=== PATIENT | female | born 1950 | race Caucasian/White ===

== ENCOUNTER 2020-05-07 09:04 | Day surgery (SDC) | payer MEDICARE, SELFPAY ==
[2020-05-04 13:19] VITALS: BMI 32.5
--- NOTE | 2020-05-04 14:14 | HO.ANESPROP2 ---
Documented by User: Caorl Gonzales 05/04/20 14:15 HPI - Anesthesia Eval Consult details Narrative: 69yo F for cyst PMFSH Past Medical History Medical History Glaucoma Nephrolithiasis Surgical History Surgical History History of lithotripsy Social History Social History Smoking Status: Never smoker Use of substances other than those prescribed or required for medical reasons: No Have you been hit, kicked, punched, or otherwise hurt by someone within the past year? If so, by whom?: No Advance Directives: No Advance Directives Information Provided: Yes Advance Directives on File: No (N/A) Meds Allergies Allergy/AdvReac Type Severity Reaction Status Date / Time No Known Allergies Allergy Verified 05/07/20 09:39 [No Known Allergies*] Home Medications Medication Instructions Recorded Confirmed Type latanoprost 1 drp OPHTHALMIC (EYE) BEDTIME 05/04/20 05/04/20 History pyridoxine (vitamin B6) 1 tab PO DAILY 05/04/20 05/07/20 History sulfamethoxazole-trimethoprim 1 tab PO BID 05/04/20 05/04/20 History sulfamethoxazole-trimethoprim 1 tab PO BID 05/04/20 05/04/20 History timolol 05/07/20 History Exam Exam Date and Time: May 04, 2020 1414 Height,Weight and Vital Signs: Height 4 ft 7 in Weight 63.503 kg Assessment and Plan Assessment Anesthesia Assessment: Chart Reviewed Documented by User: Xuan Brown 05/07/20 11:23 PMFSH Past Medical History Medical History Glaucoma Nephrolithiasis Surgical History Surgical History History of lithotripsy Social History Social History Smoking Status: Never smoker Use of substances other than those prescribed or required for medical reasons: No Have you been hit, kicked, punched, or otherwise hurt by someone within the past year? If so, by whom?: No Advance Directives: No Advance Directives Information Provided: Yes Advance Directives on File: No (N/A) Meds Allergies Allergy/AdvReac Type Severity Reaction Status Date / Time No Known Allergies Allergy Verified 05/07/20 09:39 [No Known Allergies*] Home Medications Medication Instructions Recorded Confirmed Type latanoprost 1 drp OPHTHALMIC (EYE) BEDTIME 05/04/20 05/04/20 History pyridoxine (vitamin B6) 1 tab PO DAILY 05/04/20 05/07/20 History sulfamethoxazole-trimethoprim 1 tab PO BID 05/04/20 05/04/20 History sulfamethoxazole-trimethoprim 1 tab PO BID 05/04/20 05/04/20 History timolol 05/07/20 History Exam Airway Mallampati Class: III TM Dist: >3cm Neck ROM: Full Heart: RRR Lungs: CTA BL Assessment and Plan Assessment Anesthesia Assessment: Anesthesia Plan Discussed, Consent Obtained and PAT Visit Final Anesthetic Review NPO: Yes Final Preanesthetic Review: No Changes in Pt Med Stat, Meds & Allergies Reviewed, Consent Obtained/Reviewed and Med/Surg/Anes Hx Reviewed Patient Risk: Low Procedure Risk: Low Assessment/Block/Sedation in SS: Assess/Block/Sedation-SS Anesthetic Plan Anesthetic Plan: GA Disposition: Standard PACU
[2020-05-07] VITALS (8 sets, daily range): BP systolic 163–211; BP diastolic 77–104; PULSE 73–100; RESP 17–22; TEMP 36.1–36.4; O2SAT 96–98
[2020-05-07] MEDS: levoFLOXacin 500 MG TABLET PO (09:57)
[2020-05-07] MEDS: Lactated Ringers 1,000 ML 100 ML IVCONT (09:58)
--- NOTE | 2020-05-07 12:13 | FL_ITS ---
EXAMINATION: XR FLUOROSCOPY WITH IMAGES CLINICAL INFORMATION: Nephrolithiasis. COMPARISON: KUB 02/01/2020, renal ultrasound 11/04/2019 TECHNIQUE: Fluoroscopy performed by Dr. Estrada. Fluoroscopy time: 1 minute Total dose: 16.56 mGy Images: 4 FINDINGS: There is a staghorn calculus lower pole left kidney. Contrast in the left collecting system shows no hydronephrosis. Final image demonstrates left ureteral stent in position with proximal pigtail end overlying upper pole left kidney. Distal end of stent is beyond the [id number]. IMPRESSION: Fluoroscopy for urologic procedure.
--- NOTE | 2020-05-07 13:46 | PM.OP ---
Brief Operative Note Date of procedure: 05/07/20 Pre-op diagnosis: left staghorn calculus Post-op diagnosis: same Procedure: retrograde, dilate, USR laser m22, stent Implants: stent Anesthesia: GETA Surgeon: Humberto Estrada Pathology: none sent Condition: stable Disposition: same day
[2020-05-07] MEDS: fentaNYL citrate/PF 100 MCG/2 ML VIAL 25 MCG IVPUSH ×2 (13:54→14:15)
[2020-05-07] MEDS: Phenazopyridine HCL 100 MG TABLET PO (14:09)
[2020-05-07] MEDS: Acetaminophen 325 MG TABLET 650 MG PO (14:09)
[2020-05-07] MEDS: Ketorolac Tromethamine 15 MG/ML VIAL IVPUSH (14:09)
[2020-05-07] MEDS: oxyCODONE HCl Immed Release 5 MG TABLET PO (14:09)
--- NOTE | 2020-05-07 14:56 | HO.POSTANES ---
Post Anesthesia Evaluation Post Anesthesia Evaluation Vital Signs: Vital Signs Temp Pulse Resp BP Pulse Ox 05/07/20 14:40 97.5 F 84 18 183/100 H 97 05/07/20 14:25 84 17 184/77 H 97 05/07/20 14:10 99 18 197/99 H 97 05/07/20 14:05 84 22 H 211/100 H 98 05/07/20 14:00 90 21 H 190/104 H 97 05/07/20 13:55 97.5 F 100 22 H 190/100 H 98 05/07/20 13:54 22 H 05/07/20 09:20 97.0 F 73 18 163/82 H 96 Anesthesia: General LMA Mental Status: Awake Pain Control: Satisfactory Nausea/Vomiting: None Hydration: Adequate Anesthesia-Related Issues: No Anes. Related Issues
== END 2020-05-07 15:10 | disposition home or self-care (01) ==
PROVIDERS: Urology; PCP Internal Medicine; Visit Provider Internal Medicine
PROC: (CPT 52356; principal; 2020-05-07 11:00)
DX: N20.0 Calculus of kidney (principal); Z87.442 Personal history of urinary calculi; H40.9 Unspecified glaucoma; Z79.899 Other long term (current) drug therapy
CPT/HCPCS: 52356; C1769; C1894; C2617; J1100; J1885; J2250; J2405; J3010; Q9967

== ENCOUNTER 2020-05-24 13:21 | Outpatient (REF) | payer MEDICARE, SELFPAY ==
--- NOTE | 2020-05-24 15:00 | XR_ITS ---
EXAMINATION: XR ABDOMEN KUB CLINICAL INDICATION: Calculus of kidney. COMPARISON: [facility] 02/01/2020 TECHNIQUE: AP view of the abdomen. FINDINGS: The bowel gas pattern is nonspecific. There are multiple fragmented radiopaque calculi seen in the lower pole left kidney part of previously noted staghorn calculi. No radiopaque calculi seen along the course of ureteral stent or in the bladder. A double pigtail catheter stent is seen in the left kidney pelvis and the bladder. Small radiopaque calculi seen in the lower pole right kidney, stable. XR/XR KUB IMPRESSION: The staghorn calculi left kidney are more segregated at this time. There is a left ureteral stent in place. Small radiopaque calculi lower pole right kidney are stable.
== END 2020-05-24 13:22 | disposition home or self-care (01) ==
LOC: HO.XRAY 13:21
PROVIDERS: PCP Internal Medicine; Visit Provider Urology
DX: N20.0 Calculus of kidney (principal)
CPT/HCPCS: 74018

== ENCOUNTER 2020-05-29 07:27 | Day surgery (SDC) | payer MEDICARE, SELFPAY ==
[2020-05-23 15:26] VITALS: BMI 23.3
--- NOTE | 2020-05-28 12:19 | HO.ANESPROP2 ---
HPI - Anesthesia Eval Consult details Narrative: 69yo F for Colonoscopy 05/07/20 cysto,etc with TIVA PMFSH Past Medical History Medical History (Updated 05/29/20 @ 09:54 by Dev Chamberlain MD) Diverticulosis Glaucoma Hemorrhoids History of colon polyps Nephrolithiasis Surgical History Surgical History History of lithotripsy Social History Social History Smoking Status: Never smoker Use of substances other than those prescribed or required for medical reasons: No Advance Directives: No Advance Directives Information Provided: No Advance Directives on File: No Meds Allergies Allergy/AdvReac Type Severity Reaction Status Date / Time No Known Allergies Allergy Verified 05/23/20 15:25 [No Known Allergies*] Home Medications Medication Instructions Recorded Confirmed Type latanoprost 1 drp OPHTHALMIC (EYE) BEDTIME 05/04/20 05/24/20 History pyridoxine (vitamin B6) 1 tab PO DAILY 05/04/20 05/24/20 History sulfamethoxazole-trimethoprim 1 tab PO BID 05/04/20 05/24/20 History timolol 05/07/20 05/24/20 History Exam Exam Date and Time: May 28, 2020 1219 Height,Weight and Vital Signs: Height 5 ft 5 in Weight 63.503 kg Pertinent Lab Results Pertinent Lab Results: Laboratory Tests 04/16/20 09:07 Sodium 140 Potassium 3.8 Chloride 105 BUN 10 Creatinine 0.59 Assessment and Plan Assessment Anesthesia Assessment: Chart Reviewed
--- NOTE | 2020-05-29 07:52 | MHC.SHP ---
Pre-Procedural Eval Section A The patient is an INPATIENT: No The History & Physical has been completed within 30 days and I have reviewed it.: No Section B Chief Complaint: Positive Cologuard Details of Present Illness: Colon cancer screening Relevant Family History (Specify if Yes): No Relevant Social History: None Present Medications: see Short Stay Collaborative assessment Medical History: Significant History ( Nephrolithiasis. Glaucoma. ) History of Previous Operations: No relevant previous surgery ([facility] 2019) Allergies: Allergies Allergy/AdvReac Type Severity Reaction Status Date / Time No Known Allergies Allergy Verified 05/23/20 15:25 [No Known Allergies*] Review of Systems Sugical H&P ROS: Negative: Constitution, Cardiovascular, Respiratory and Gastrointestinal Exam Surgical H&P Exam: Normal: Heart, Normal: Lungs, Normal: Extremities and Normal: Abdomen Plan Diagnosis/Plan: Unchanged Patient has been examined and remains a candidate for the planned procedure
[2020-05-29] MEDS: Lactated Ringers 1,000 ML 100 ML IVCONT (08:23)
[2020-05-29 08:24] VITALS: BP 155/72; PULSE 74; RESP 20; TEMP 36.6; O2SAT 96
--- NOTE | 2020-05-29 08:50 | PM.OP ---
Brief Operative Note Date of procedure: 05/29/20 Pre-op diagnosis: Colon cancer screening, positive cologuard test Post-op diagnosis: other ( colon polyps, diverticulosis, hemorrhoids.) Procedure: COLONOSCOPY TILL CECUM WITH SNARE POLYPECTOMY AND CONTROL OF BLEEDING WITH HEMOCLIPS X2 Consent: Indications for the procedure and potential complications of bleeding, perforation, reaction to medications and missed diagnosis were discussed with the patient and informed consent was obtained. Instrument: Olympus PCF H 190 L variable stiffness pediatric colonoscope Monitoring: Vital signs and clinical assessment, intermittent blood pressure monitoring, continuous EKG monitoring, Pulse oximetry and Carbon Dioxide monitoring were done throughout the procedure. Colon withdrawl time was 48 minutes. Procedure: The patient was placed in the left lateral decubitis position and pre-procedure medications were administered. After a digital rectal examination of the ano-rectum, the video colonoscope was inserted into the rectum and advanced through the colon to the cecum. The colonoscope was slowly withdrawn in a retrograde panoramic fashion and the colon mucosa was carefully examined including a retroflexed view of the rectum. Findings and interventions are described below. Procedure Difficulty: Without difficulty Findings: Terminal Ileum: Not evaluated Cecum: Normal Ascending Colon: A 7-8 mm sessile polyp in distal AC removed with a cold snare and polyp was not retrieved. Transverse Colon: Two 10-12 mm sessile polyps removed with a hot snare (one polyp was not retrieved). A 3rd 2 cms sessile polyp removed with a hot snare. Some bleeding noted at polypectomy site controlled with placement of 2 resolution clips Descending Colon: Moderate diverticulosis Sigmoid Colon: A 10 mm sessile polyp removed with a hot snare and moderate diverticulosis Rectum: a 10 mm sessile polyp removed with a hot snare fe Ano-rectum: moderate internal hemorrhoids Colon preparation: Excellent Impression and Post Procedure Diagnosis: Colonoscopy Findings: Six polyps removed - 2 polyps were not retrieved. Moderate diverticulosis seen in the left colon Moderate hemorrhoids on retroflexed exam. Plan: Await pathology results Patient will be informed of bx results by a letter. Repeat Colonoscopy interval based on path results - in 2 years if polyps are adenomatous and 10 years if polyps are hyperplastic. Above findings were reviewed with the patient and colon polyps and diverticulosis handouts were given in the discharge area Surgeon: Dev Chamberlain MD Anesthesia: MAC (Dr Taylor) Electric Knife Operator: Patricia Ayala Estimated blood loss (mL): 5 Pathology: other (A. Transverse colon polyps, B. SC polyp x 1, C. Rectal polyp x 1) Condition: stable Disposition: PACU
[2020-05-29 09:57] VITALS: BP 150/70; PULSE 80; RESP 16; TEMP 36.2; O2SAT 97
[2020-05-29 10:13] VITALS: BP 157/80; PULSE 77; RESP 15; TEMP 36.2; O2SAT 100
--- NOTE | 2020-05-29 10:47 | HO.POSTANES ---
Post Anesthesia Evaluation Post Anesthesia Evaluation Vital Signs: Vital Signs Temp Pulse Resp BP Pulse Ox 05/29/20 10:13 97.1 F 77 15 157/80 H 100 05/29/20 09:57 97.1 F 80 16 150/70 H 97 05/29/20 08:24 98 F 74 20 155/72 H 96 Anesthesia: Monitored and General (TIVA) Mental Status: Awake Pain Control: Satisfactory Nausea/Vomiting: None Hydration: Adequate Anesthesia-Related Issues: No Anes. Related Issues
== END 2020-05-29 10:50 | disposition home or self-care (01) ==
PROVIDERS: PCP Internal Medicine; Visit Provider Internal Medicine Gastroenterology
PROC: 0DJD8ZZ Inspection of Lower Intestinal Tract, Via Natural or Artificial Opening Endoscopic (ICD-10-PCS; CPT 45378; principal; 2020-05-29 08:40)
DX: R19.5 Other fecal abnormalities (principal); Z86.010 Personal history of colon polyps; D12.3 Benign neoplasm of transverse colon; D12.5 Benign neoplasm of sigmoid colon; D12.8 Benign neoplasm of rectum; K57.30 Diverticulosis of large intestine without perforation or abscess without bleeding; K64.8 Other hemorrhoids; Z87.442 Personal history of urinary calculi; Z79.899 Other long term (current) drug therapy
CPT/HCPCS: 45385; 88305

== ENCOUNTER → 2020-06-06 11:18 | Outpatient (BNVA) | payer MEDICARE, SELFPAY | PROVIDERS: PCP Internal Medicine; Referring Provider Internal Medicine; Visit Provider Urology | DX: Z76.89 Persons encountering health services in other specified circumstances (principal) | CPT/HCPCS: 99212 ==

== ENCOUNTER → 2020-07-03 14:48 | Outpatient (BNVA) | payer MEDICARE, SELFPAY | PROVIDERS: PCP Internal Medicine; Referring Provider Internal Medicine; Visit Provider Urology | DX: Z46.6 Encounter for fitting and adjustment of urinary device (principal) | CPT/HCPCS: 52000; 52310; 99212 ==

== ENCOUNTER 2020-08-08 17:58 | Outpatient (REF) | payer MEDICARE, SELFPAY | END 2020-08-08 17:59 | disposition home or self-care (01) | LOC: HO.LAB 17:58 | PROVIDERS: Visit Provider Internal Medicine | DX: Z20.828 Contact with and (suspected) exposure to other viral communicable diseases (principal) | CPT/HCPCS: 36415; C9803; U0003 ==

== ENCOUNTER 2020-08-10 10:01 | Emergency (ER) | payer MEDICARE, SELFPAY ==
[2020-08-10] VITALS (7 sets, daily range): BP systolic 150–171; BP diastolic 71–86; PULSE 101–133; RESP 17–28; TEMP 36.9–38.8; O2SAT 93–95; BMI 31.4
--- NOTE | 2020-08-10 10:57 | XR_ITS ---
EXAMINATION: XR CHEST CLINICAL INFORMATION: Chest pressure COMPARISON: CT abdomen 08/25/2019 TECHNIQUE: Portable upright AP view of the chest was obtained. FINDINGS: There is coarsening bronchiolar markings mid and lower zones. There is suspicion of early groundglass opacity right base. There are no air bronchograms. No overt effusion. No pneumothorax or pleural reaction. The heart is normal in size and the hilar and mediastinal contours are normal. XR/XR chest 1V IMPRESSION: Subtle airspace opacity right base with coarsening bronchiolar markings bilateral mid and lower zones. Findings may represent early pneumonia. Clinically correlate.
--- NOTE | 2020-08-10 10:57 | ECG_ITS ---
Test Reason : SOB Blood Pressure : / mmHG Vent. Rate : 114 BPM Atrial Rate : 114 BPM P-R Int : 138 ms QRS Dur : 136 ms QT Int : 370 ms P-R-T Axes : 019 187 -01 degrees QTc Int : 509 ms Sinus tachycardia Possible Left atrial enlargement Right bundle branch block Possible Inferior infarct , age undetermined Abnormal ECG No previous ECGs available Referred By: Alanna Pierre Electronically Signed By:Bertin Murphy
--- NOTE | 2020-08-10 11:11 | ED.URI ---
HPI - URI/Sore Throat General Chief Complaint: Upper Respiratory Symptoms Stated Complaint: upper respiratory Time Seen by Provider: 08/10/20 10:33 Source: patient Mode of arrival: ambulatory Limitations: no limitations History of Present Illness HPI Narrative: 70 yo female with past medical history of tubular adenoma of the colon, vitamin-D deficiency, high cholesterol, hemorrhoids, diverticulosis, renal colic here with tactile temps, diarrhea, cough, malaise times several days. The patient tells me that her was COVID positive and recently. She was tested for COVID on August 08 and is waiting for her results. She denies shortness of breath. She does have some chest heaviness. No leg swelling or pain. MD elicited complaint: fever and cough Onset (ago): day(s) Consistency: intermittent Severity: mild Able to tolerate fluids by mouth: Yes Exacerbating factors: nothing Relieving factors: nothing Context: sick contacts Associated symptoms: fever, cough and diarrhea Related Data Home Medications Medication Instructions Recorded Confirmed latanoprost 1 drp OPHTHALMIC (EYE) BEDTIME 05/04/20 05/24/20 pyridoxine (vitamin B6) 1 tab PO DAILY 05/04/20 05/24/20 timolol maleate 0.5 % eye drops 1 drp OPHTHALMIC (EYE) BID 06/21/20 06/21/20 Previous Rx's Medication Instructions Recorded cholecalciferol (vitamin D3) 1,250 1,250 mcg PO QWEEK #12 cap 07/06/20 mcg (50,000 unit) capsule azithromycin 250 mg PO DAILY 4 Days #4 tab 08/10/20 cefuroxime axetil 250 mg PO BID 7 Days #14 tab 08/10/20 Allergies Allergy/AdvReac Type Severity Reaction Status Date / Time No Known Allergies Allergy Verified 06/21/20 14:59 [No Known Allergies*] Review of Systems Review of Systems: Yes all other systems are reviewed and are negative Constitutional: Constitutional: Reports no additional constitutional complaints, Denies body ache(s), Denies chills, Reports fever(s), Denies headache(s), Reports malaise and Denies weakness Eyes: Eyes: Reports no additional eye complaints and Denies change in vision ENT: Reports system reviewed and no additional complaints, except as documented, Denies dizziness, Denies headache(s), Denies nasal congestion, Denies nasal discharge and Denies neck pain Cardiovascular: Cardiovascular: Reports no additional cardiovascular complaints, Reports chest pain (heaviness), Denies leg edema and Denies dyspnea Respiratory: Respiratory: Reports no additional respiratory complaints, Reports cough and Denies dyspnea Gastrointestinal: Gastrointestinal: Reports no additional gastrointestinal complaints, Denies abdominal pain, Denies diarrhea, Denies nausea and Denies vomiting Genitourinary: Genitourinary: Reports no additional female genitourinary complaints and Denies urinary incontinence Musculoskeletal: Musculoskeletal: Reports no additional musculoskeletal complaints, Denies back pain, Denies arthralgias, Denies joint swelling, Denies neck pain, Denies numbness and Denies tingling Integumentary/Breasts: Skin/Breast: Reports system reviewed and no additional complaints, except as docu and Denies rash Neurologic: Reports system reviewed and no additional complaints, except as documented, Denies Abnormal speech present, Denies dizziness, Denies headache(s), Denies numbness, Denies tingling and Denies weakness PMFSH Past Medical History Attestation statement: The following information was validated with the patient. Source: old records reviewed and nursing notes reviewed Medical History Diverticulosis Dyslipidemia Endometrial thickening on ultrasound Glaucoma Hemorrhoids History of colon polyps Needs flu shot Nephrolithiasis Tubular adenoma of colon Vitamin D deficiency Surgical History History of lithotripsy Family History Family History Father No problems noted. Mother CVD (cardiovascular disease) Brother No problems noted. Brother No problems noted. Social History Social History Alcohol intake: never Smoking Status: Former smoker Smoked in Last 30 Days: No Use of substances other than those prescribed or required for medical reasons: No Advance Directives: No Advance Directives Information Provided: No Physical Exam Vital Signs: Vital Signs: Last Vital Signs Temp 98.5 F 08/10/20 15:37 Pulse 101 H 08/10/20 15:37 Resp 26 H 08/10/20 15:37 BP 163/71 H 08/10/20 15:37 Pulse Ox 94 08/10/20 15:49 Body Mass Index 31.4 Const: General: cooperative, healthy appearing, comfortable and no acute distress Orientation/consciousness: patient oriented x3 Limitations: no limitations HENMT: Head: Yes normal to inspection Ears: hearing grossly normal bilaterally General nose exam: Normal external nose present Face and sinus: Yes normal facial exam Mouth: Normal oral and palatal mucosa present Throat: Yes posterior oropharynx normal Eyes: General: appearance normal, both eyes and all related structures Pupils: Equal, round and reactive pupils present Neck: Neck: Yes normal visual inspection Chest: Chest palpation & inspection: normal inspection of the chest Resp: Effort & Inspection: normal respiratory effort Auscultation: clear to auscultation bilaterally Cardio: Rate: tachycardic Rhythm: regular rhythm Peripheral pulses: Peripheral pulses 2+ throughout GI: Inspection: Yes normal to inspection Palpation (GI): Soft to palpation and nontender Auscultation: normal bowel sounds Back/Spine/Pelvis: Thoracic/Lumbar Spine: thoracic and lumbar spine normal to inspection Skin: General skin exam: no rashes or lesions noted Neuro: General: patient oriented x3, no focal motor deficits and normal sensation to monofilament Cranial nerves: Yes Equal, round and reactive pupils present Cognition (Neuro): normal cognition Speech: No Abnormal speech present Gait exam (Neuro): Normal gait present Motor exam (neuro): 5/5 motor strength present throughout Extrem: General: Yes normal to inspection, Yes no pedal edema, Yes no calf tenderness and Yes normal gait Course Course Course Narrative: 70-year-old female here with tactile temps, body aches, malaise, cough, diarrhea times several days. Had outpatient COVID test which is pending. On exam patient is febrile and tachycardic. She has some mild tachypnea which may be secondary to her fever. Lung sounds are clear. Will check chest x-ray, EKG, labs including blood cultures and lactic acid, COVID test. These symptoms are from a viral infection and not from a bacterial infection. 1130-CXR c/w with subtle airspace opacity right base with coarsening bronchiolar markings bilateral mid and lower zones. Findings may represent early pneumonia. At this time a superimposed bacterial infection is also a possibility. Antibiotics ordered. 1300-labs show mildly elevated troponin. Less likely ACS with EKG which is unchanged and atypical chest pain. Plan for repeat 3 hour troponin. COVID test positive. 1530-patient ambulated in the emergency department with an oxygen saturation of 92%. No shortness of breath noted, RR 20 during ambulation. She is feeling improved. Discussed patient with her daughter Sylwia. The patient does live alone with the daughter plans on checking on her on a regular basis. She has a pulse oximeter at home and they will keep an eye on this. She lives on a ground level floor with access to a bathroom. Discussed this with the patient and the daughter. She feels comfortable being discharged home. Reviewed worrisome signs and symptoms and when to return to the emergency department. Comfortable with discharge home. MDM - URI/Sore Throat Medical Records Attestation: I reviewed the patient's medical records. Lab Data Attestation: I reviewed the patient's lab results. Result diagrams: 08/10/20 11:52 08/10/20 11:45 Labs: Lab Results 08/10/20 08/10/20 08/10/20 Range/Units 11:45 11:45 11:45 WBC (4.8-10.8) X10*3/uL RBC (4.20-5.50) X10*6/uL Hgb (12.0-16.0) g/dl Hct (37-47) % MCV (80-98) fL MCH (27.0-33.0) pg MCHC (31.0-35.0) g/dl RDW (11.0-16.0) % Plt Count (160-400) X10*3/uL MPV (9.4-12.3) fL Immature Gran % (Auto) (0.0-0.4) % Neut % (Auto) (45-73) % Lymph % (Auto) (20-40) % [place]kin % (Auto) (2-11) % Eos % (Auto) (0-4) % Baso % (Auto) (0-2) % Lymph # (Auto) (1.2-4.9) X10*3/uL [place]kin # (Auto) (0.1-1.2) X10*3/uL Eos # (Auto) (0.0-0.4) X10*3/uL Baso # (Auto) (0.0-0.2) X10*3/uL Abs Immat Gran (auto) (0.00-0.03) X10*3/uL Absolute Neuts (auto) (2.0-8.3) X10*3/uL Absolute Nucleated RBC (0.0-0.012) X10*3/uL Nucleated RBC % (auto) (0.0-0.2) /100WBC Smear Tech's Comments PT 15.0 H (10.8-13.0) SEC INR 1.3 H (0.9-1.1) Sodium 138 (135-145) mmol/L Potassium 3.3 (3.3-5.1) mmol/l Chloride 100 (96-108) mmol/L Carbon Dioxide 23 (22-29) mmol/L Anion Gap 18 (12-20) BUN 5 L (9-16) mg/dL Creatinine 0.60 (0.5-1.4) mg/dL Estim Creat Clear Calc 66.8 Estimated GFR > 60 Random Glucose 105 (60-115) mg/dL Lactic Acid (0.5-2.0) mmol/L Calcium 8.0 L (8.4-10.2) mg/dL Magnesium 1.9 (1.6-2.6) mg/dL Ferritin 592 H (10-250) ng/mL Total Bilirubin 0.5 (0.0-1.0) mg/dL Direct Bilirubin 0.3 (0.0-0.5) mg/dL AST 51 H (5-31) U/L ALT 27 (0-31) U/L Alkaline Phosphatase 87 (39-117) U/L Lactate Dehydrogenase 406 H (122-220) U/L Troponin I High Sens (<3.5-17.0) ng/L C-Reactive Protein 13.52 H (< or = 0.50) mg/dL Total Protein 6.8 (6.5-8.0) g/dL Albumin 3.7 (3.5-5.0) g/dL Procalcitonin ng/mL Coronavirus (PCR) (Negative) Influenza Type A (PCR) (Negative) Influenza Type B (PCR) (Negative) RSV RNA Qual (PCR) (Negative) 08/10/20 08/10/20 08/10/20 Range/Units 11:45 11:47 11:52 WBC 3.8 L (4.8-10.8) X10*3/uL RBC 4.01 L (4.20-5.50) X10*6/uL Hgb 13.6 (12.0-16.0) g/dl Hct 38.4 (37-47) % MCV 95.8 (80-98) fL MCH 33.9 H (27.0-33.0) pg MCHC 35.4 H (31.0-35.0) g/dl RDW 12.4 (11.0-16.0) % Plt Count 281 (160-400) X10*3/uL MPV 10.0 (9.4-12.3) fL Immature Gran % (Auto) 0.3 (0.0-0.4) % Neut % (Auto) 77.9 H (45-73) % Lymph % (Auto) 13.8 L (20-40) % [place]kin % (Auto) 8.0 (2-11) % Eos % (Auto) 0.0 (0-4) % Baso % (Auto) 0.0 (0-2) % Lymph # (Auto) 0.5 L (1.2-4.9) X10*3/uL [place]kin # (Auto) 0.3 (0.1-1.2) X10*3/uL Eos # (Auto) 0.0 (0.0-0.4) X10*3/uL Baso # (Auto) 0.0 (0.0-0.2) X10*3/uL Abs Immat Gran (auto) 0.01 (0.00-0.03) X10*3/uL Absolute Neuts (auto) 2.9 (2.0-8.3) X10*3/uL Absolute Nucleated RBC 0.000 (0.0-0.012) X10*3/uL Nucleated RBC % (auto) 0.0 (0.0-0.2) /100WBC Smear Tech's Comments VERIFIED PT (10.8-13.0) SEC INR (0.9-1.1) Sodium (135-145) mmol/L Potassium (3.3-5.1) mmol/l Chloride (96-108) mmol/L Carbon Dioxide (22-29) mmol/L Anion Gap (12-20) BUN (9-16) mg/dL Creatinine (0.5-1.4) mg/dL Estim Creat Clear Calc Estimated GFR Random Glucose (60-115) mg/dL Lactic Acid (0.5-2.0) mmol/L Calcium (8.4-10.2) mg/dL Magnesium (1.6-2.6) mg/dL Ferritin (10-250) ng/mL Total Bilirubin (0.0-1.0) mg/dL Direct Bilirubin (0.0-0.5) mg/dL AST (5-31) U/L ALT (0-31) U/L Alkaline Phosphatase (39-117) U/L Lactate Dehydrogenase (122-220) U/L Troponin I High Sens (<3.5-17.0) ng/L C-Reactive Protein (< or = 0.50) mg/dL Total Protein (6.5-8.0) g/dL Albumin (3.5-5.0) g/dL Procalcitonin 0.03 ng/mL Coronavirus (PCR) POSITIVE A (Negative) Influenza Type A (PCR) NEGATIVE (Negative) Influenza Type B (PCR) NEGATIVE (Negative) RSV RNA Qual (PCR) NEGATIVE (Negative) 08/10/20 08/10/20 08/10/20 Range/Units 11:52 11:52 15:41 WBC (4.8-10.8) X10*3/uL RBC (4.20-5.50) X10*6/uL Hgb (12.0-16.0) g/dl Hct (37-47) % MCV (80-98) fL MCH (27.0-33.0) pg MCHC (31.0-35.0) g/dl RDW (11.0-16.0) % Plt Count (160-400) X10*3/uL MPV (9.4-12.3) fL Immature Gran % (Auto) (0.0-0.4) % Neut % (Auto) (45-73) % Lymph % (Auto) (20-40) % [place]kin % (Auto) (2-11) % Eos % (Auto) (0-4) % Baso % (Auto) (0-2) % Lymph # (Auto) (1.2-4.9) X10*3/uL [place]kin # (Auto) (0.1-1.2) X10*3/uL Eos # (Auto) (0.0-0.4) X10*3/uL Baso # (Auto) (0.0-0.2) X10*3/uL Abs Immat Gran (auto) (0.00-0.03) X10*3/uL Absolute Neuts (auto) (2.0-8.3) X10*3/uL Absolute Nucleated RBC (0.0-0.012) X10*3/uL Nucleated RBC % (auto) (0.0-0.2) /100WBC Smear Tech's Comments PT (10.8-13.0) SEC INR (0.9-1.1) Sodium (135-145) mmol/L Potassium (3.3-5.1) mmol/l Chloride (96-108) mmol/L Carbon Dioxide (22-29) mmol/L Anion Gap (12-20) BUN (9-16) mg/dL Creatinine (0.5-1.4) mg/dL Estim Creat Clear Calc Estimated GFR Random Glucose (60-115) mg/dL Lactic Acid 1.1 (0.5-2.0) mmol/L Calcium (8.4-10.2) mg/dL Magnesium (1.6-2.6) mg/dL Ferritin (10-250) ng/mL Total Bilirubin (0.0-1.0) mg/dL Direct Bilirubin (0.0-0.5) mg/dL AST (5-31) U/L ALT (0-31) U/L Alkaline Phosphatase (39-117) U/L Lactate Dehydrogenase (122-220) U/L Troponin I High Sens 5.9 8.1 (<3.5-17.0) ng/L C-Reactive Protein (< or = 0.50) mg/dL Total Protein (6.5-8.0) g/dL Albumin (3.5-5.0) g/dL Procalcitonin ng/mL Coronavirus (PCR) (Negative) Influenza Type A (PCR) (Negative) Influenza Type B (PCR) (Negative) RSV RNA Qual (PCR) (Negative) Imaging Data Chest x-ray: Attestation: I personally reviewed and interpreted this imaging study as follows: Radiologist's impression: [facility] [address] [place] [address] XRay Report Signed Patient: Joana Sheridan#: [id number] : 2Acct:[id number] Age/Sex: 70 / FADM Date: 08/10/20 Loc: HO.ED Attending Dr: Ordering Physician: JAYNE MARAVILLA NP Date of Service: 08/10/20 Procedure(s): XR chest 1V Accession Number(s): [id number] cc: JAYNE MARAVILLA [employer]APER~ EXAMINATION: XR CHEST CLINICAL INFORMATION: Chest pressure COMPARISON: CT abdomen 08/25/2019 TECHNIQUE: Portable upright AP view of the chest was obtained. FINDINGS: There is coarsening bronchiolar markings mid and lower zones. There is suspicion of early groundglass opacity right base. There are no air bronchograms. No overt effusion. No pneumothorax or pleural reaction. The heart is normal in size and the hilar and mediastinal contours are normal. XR/XR chest 1V IMPRESSION: Subtle airspace opacity right base with coarsening bronchiolar markings bilateral mid and lower zones. Findings may represent early pneumonia. Clinically correlate. ECG Data Attestation: I personally reviewed and interpreted this ECG as follows: ECG interpretation date: 08/10/20 ECG interpretation time: 11:56 Interpretation: Sinus tachycardia with rate 114, normal GA, normal QRS, RBBB, normal qt Discharge Plan Discharge Clinical Impression: COVID-19 Pneumonia Qualifiers: Pneumonia type: due to unspecified organism Laterality: right Lung location: lower lobe of lung Qualified Code(s): J18.9 - Pneumonia, unspecified organism Patient Disposition: Home, Self-Care Instructions: Bacterial Pneumonia (ED), COVID-19 (Coronavirus Disease 2019) (ED) Additional Instructions: You have COVID-19. This is a viral infection in your contagious for 14 days from when you 1st started having symptoms. You also have a pneumonia and a right lower lobe. You were given antibiotics while you are here in the emergency department you do not need to start your next dose of antibiotics until tomorrow. Take Motrin or Tylenol if able as needed for pain or fever Increase fluids, rest Your daughter says you have a pulse oximeter at home. You should check your oxygen every morning. If your level is less than 90% you need to return to the emergency department. Also return for worsening shortness of breath, chest pain. You should stay in her bedroom on the main floor and avoid using the stairs. Prescriptions: New azithromycin 250 mg tablet 250 mg PO DAILY 4 Days Qty: 4 RF: 0 cefuroxime axetil 250 mg tablet 250 mg PO BID 7 Days Qty: 14 RF: 0 No Action cholecalciferol (vitamin D3) 1,250 mcg (50,000 unit) capsule 1,250 mcg PO QWEEK Qty: 12 RF: 2 latanoprost 0.005 % drops 1 drp ophthalmic (eye) BEDTIME RF: 0 pyridoxine (vitamin B6) 100 mg tablet 1 tab PO DAILY RF: 0 timolol maleate 0.5 % drops 1 drp ophthalmic (eye) BID RF: 0 Referrals: Jerrell Ball, [facility] [Primary Care Provider] - 2 days ( )
[2020-08-10 12:02] LABS: INTERNATIONAL NORM RATIO 1.3 (0.9-1.1)
[2020-08-10] MEDS: 0.9 % Sodium Chloride 1,000 ML 999 ML IV (12:02)
[2020-08-10] MEDS: Acetaminophen 325 MG TABLET 975 MG PO (12:14)
[2020-08-10] MEDS: cefTRIAXone sodium 1 GM in 0.9 % Sodium Chloride 50 ML IV (12:15)
[2020-08-10 12:16] LABS: Hematocrit 38.4 % (37-47); Hemoglobin 13.6 g/dl (12.0-16.0); Imm Gran Abs Auto 0.01 X10*3/uL (0.00-0.03); Imm Gran Pct Auto 0.3 % (0.0-0.4); Lymphocytes Absolute Auto 0.5 X10*3/uL (1.2-4.9); Lymphocytes Percent Auto 13.8 % (20-40); MANUAL DIFF FLAG SCAN; Mean Corpuscular HGB Conc 35.4 g/dl (31.0-35.0); Mean Corpuscular Hemoglobin 33.9 pg (27.0-33.0); Mean Corpuscular Volume 95.8 fL (80-98); Monocytes Absolute Auto 0.3 X10*3/uL (0.1-1.2); Neutrophils Absolute Auto 2.9 X10*3/uL (2.0-8.3); Neutrophils Percent Auto 77.9 % (45-73); Platelet Count 281 X10*3/uL (160-400); Red Blood Count 4.01 X10*6/uL (4.20-5.50); Red Cell Distribution Width 12.4 % (11.0-16.0); SCAN SMEAR FLAG 1; White Blood Count 3.8 X10*3/uL (4.8-10.8)
[2020-08-10 12:32] LABS: Lactic Acid 1.1 mmol/L (0.5-2.0)
[2020-08-10 12:35] LABS: Alanine Aminotransferase 27 U/L (0-31); Albumin Level 3.7 g/dL (3.5-5.0); Alkaline Phosphatase 87 U/L (39-117); Anion Gap 18 (12-20); Aspartate Amino Transferase 51 U/L (5-31); Bilirubin Direct 0.3 mg/dL (0.0-0.5); Bilirubin Total 0.5 mg/dL (0.0-1.0); Blood Urea Nitrogen 5 mg/dL (9-16); C Reactive Protein 13.52 mg/dL (< or = 0.50); Carbon Dioxide 23 mmol/L (22-29); Chloride 100 mmol/L (96-108); Creatinine Clr Calc Pharmacy 66.8; Estimated Glomerular Filt Rate > 60; Glucose Random 105 mg/dL (60-115); Lactate Dehydrogenase 406 U/L (122-220); Magnesium 1.9 mg/dL (1.6-2.6); Potassium 3.3 mmol/l (3.3-5.1); Sodium 138 mmol/L (135-145); Total Protein 6.8 g/dL (6.5-8.0)
[2020-08-10 12:44] LABS: Influenza A PCR NEGATIVE (Negative); Influenza B PCR NEGATIVE (Negative); Resp Syncy Virus RNA Qual PCR NEGATIVE (Negative)
[2020-08-10 12:44] LABS: Troponin-I High Sensitivity 5.9 ng/L (<3.5-17.0)
[2020-08-10 12:49] LABS: SARS COV2 PCR INHOUSE POSITIVE (Negative)
[2020-08-10 12:56] LABS: Procalcitonin 0.03 ng/mL
[2020-08-10] MEDS: Azithromycin 500 MG in 0.9 % Sodium Chloride 250 ML 125 MG IV (13:04)
--- NOTE | 2020-08-10 13:08 | PC.NURSE ---
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
[2020-08-10 13:11] LABS: SLIDE REVIEW VERIFIED
[2020-08-10 13:21] LABS: Ferritin 592 ng/mL (10-250)
--- NOTE | 2020-08-10 15:48 | PC.NURSE ---
pt ambulated around room w steady gait. no oxygen desaturation of note during trial ambulation.
[2020-08-10 16:26] LABS: Troponin-I High Sensitivity 8.1 ng/L (<3.5-17.0)
--- NOTE | 2020-08-10 16:47 | PC.NURSE ---
daughter called for ride home. given discharge instructions via phone.
== END 2020-08-10 17:22 | disposition home or self-care (01) ==
PROVIDERS: Nurse Practitioner Family; Emergency Provider Emergency Medicine; PCP Nurse Practitioner Family
DX: U07.1 COVID-19 (principal); J15.9 Unspecified bacterial pneumonia; R53.81 Other malaise; Z87.891 Personal history of nicotine dependence
CPT/HCPCS: 0241U; 36415; 71045; 80048; 80076; 82728; 83605; 83615; 83735; 84145; 84484; 85025; 85610; 86140; 87040; 93005; 96361; 96365; 96366; 96375; 99285; J0456; J0696

== ENCOUNTER 2021-01-10 11:20 | Outpatient (REF) | payer MEDICARE, MEDICAID, SELFPAY ==
[2021-01-10 14:54] LABS: Anion Gap 13 (12-20); Blood Urea Nitrogen 10 mg/dL (9-16); Carbon Dioxide 27 mmol/L (22-29); Chloride 104 mmol/L (96-108); Cholesterol 269 mg/dL; Estimated Glomerular Filt Rate > 60; Glucose Fasting 84 mg/dL (60-99); HDL Cholesterol 81 mg/dL; LDL Cholesterol Calculated 165 mg/dl; Potassium 3.9 mmol/L (3.3-5.1); Sodium 140 mmol/L (135-145); Triglycerides 116 mg/dL
[2021-01-10 15:20] LABS: Vitamin D 25-OH Total 82.9 ng/mL (>30)
== END 2021-01-10 11:21 | disposition home or self-care (01) ==
LOC: HO.HMGCLDS 11:20
PROVIDERS: PCP Internal Medicine; Visit Provider Internal Medicine
DX: E78.5 Hyperlipidemia, unspecified (principal); E55.9 Vitamin D deficiency, unspecified; I10 Essential (primary) hypertension; Z78.0 Asymptomatic menopausal state
CPT/HCPCS: 36415; 80048; 80061; 82306

== ENCOUNTER 2021-04-16 13:34 | Outpatient (REF) | payer MEDICARE, MEDICAID, SELFPAY ==
--- NOTE | ~2021-04-16 | MM_ITS ---
EXAMINATION: BONE DENSITOMETRY CLINICAL INDICATION: Asymptomatic menopausal state. COMPARISON: None (current study represents initial baseline exam). TECHNIQUE: Using a [employer] DXA System (software version: 13.1) manufactured by [email or web address], dual-energy x-ray absorptiometry was performed of the lumbar spine and left hip. The images are of good technical quality. Summary results are attached. FINDINGS: AP SPINE L1-L4: BMD 0.896 g/cm2, Z-score -0.7, T-score -2.4, osteopenia. LEFT FEMUR, NECK: BMD 0.766 g/cm2, Z-score -0.3, T-score -2.0, osteopenia. LEFT FEMUR, TOTAL: BMD 0.658 g/cm2, Z-score -1.4, T-score -2.8, osteoporosis. IDENTIFIED RISK FACTORS: Menopause. HISTORY OF FRACTURE: None listed. MEDICATIONS: Calcium supplements or multivitamin, vitamin D. MM/XR DEXA axial skeleton IMPRESSION: 1. DIAGNOSIS: Osteoporosis based on the lowest T-score value of -2.8 in the total femur applying World Health Organization criteria. 2. 10-YEAR FRACTURE RISK PREDICTION, FRAX: Major osteoporotic fracture (clinical spine, forearm, hip or shoulder) 11.0%. Hip fracture 1.9%. 3. Treatment Recommendations: NOF guidelines recommend consideration for treatment in postmenopausal women and men age 50 and older presenting with the following: -A hip or vertebral (clinical or morphometric) fracture. -T-score less than or equal to -2.5 at the femoral neck or spine after appropriate evaluation to exclude secondary causes. -Low bone mass at the hip or spine and a 10-year fracture probability by FRAX of greater than or equal to 3% for hip fracture or greater than or equal to 20% for major osteoporotic fracture based on the [place] adapted WHO algorithm. 4. Other Recommendations: All treatment decisions require clinical judgment and consideration of individual patient factors, including patient preferences, comorbidities, previous drug use, risk factors not captured in the FRAX model (e.g. frailty, falls, vitamin D deficiency, increased bone turnover, interval significant decline in bone density) and possible under or overestimation of fracture risk by FRAX. Additional medical evaluation for secondary cause of low bone mineral density may be appropriate. FUTURE SCAN RECOMMENDATION: People with diagnosed cases of osteoporosis or at high risk for fracture should have regular bone mineral density tests. For patients eligible for Medicare, routine testing is allowed once every 2 years. The testing frequency can be increased to one year for patients who have rapidly progressing disease, those who are receiving or discontinuing medical therapy to restore bone mass, or have additional risk factors.
--- NOTE | ~2021-04-16 | MM_ITS ---
EXAMINATION: MM SCREENING DIGITAL BREAST TOMOSYNTHESIS, BILATERAL CLINICAL INFORMATION: Screening. Asymptomatic. The lifetime risk of breast cancer based on the Tyrer-Cuzick Model is 4.7%. COMPARISON: Mammography: August 18, 2019 and studies dating back to February 28, 2013 TECHNIQUE: Digital breast tomosynthesis is performed in both the craniocaudal and mediolateral oblique views along with computer-aided detection (CAD). Synthesized 2D images are generated from the tomosynthesis. FINDINGS: There are scattered areas of fibroglandular density (ACR BI-RADS breast composition Category b). There are no significant masses, abnormal calcifications, or other abnormalities. MM/MM tomosynthesis screening BI IMPRESSION: There are no significant changes from prior study. ASSESSMENT: BI-RADS 1: Negative RECOMMENDATION: Routine annual mammography screening. This patient's information was entered into a reminder system with a target due date for their next mammogram.
== END 2021-04-16 13:35 | disposition home or self-care (01) ==
LOC: HO.MAMMO 13:34
PROVIDERS: PCP Internal Medicine; Visit Provider Internal Medicine
DX: Z12.31 Encounter for screening mammogram for malignant neoplasm of breast (principal); Z13.820 Encounter for screening for osteoporosis; M81.0 Age-related osteoporosis without current pathological fracture; Z78.0 Asymptomatic menopausal state; Z79.899 Other long term (current) drug therapy
CPT/HCPCS: 77063; 77067; 77080

== ENCOUNTER 2021-06-19 12:47 | Outpatient (REF) | payer MEDICARE, MEDICAID, SELFPAY ==
--- NOTE | ~2021-06-19 | US_ITS ---
EXAMINATION: US RETROPERITONEAL LIMITED (RENAL ONLY) CLINICAL INFORMATION: Calculus of kidney. COMPARISON: [facility] 05/24/2020 and 02/01/2020. Renal ultrasound 11/04/2019. CT abdomen and pelvis 08/25/2019. Ultrasound abdomen complete 07/21/2019. TECHNIQUE: Real-time imaging of the kidneys. FINDINGS: RIGHT KIDNEY: 11.7 x 3.9 x 6.1 cm (SAG x AP x TRV). The kidney is normal in size, contour, and echogenicity. Renal cortical thickness is normal. No focal parenchymal lesions or hydronephrosis. Three discrete stones are seen with 2 in the midpole measuring 0.8 x 0.8 x 1.3 cm and 1.4 x 0.6 x 1.1 cm with a lower pole stone measuring 1.1 x 0.6 x 1.2 cm. At the time of the patient's prior study, 3 stones were also noted on the right, but on today's study they appear larger. LEFT KIDNEY: 13.3 x 5.1 x 6.3 cm (SAG x AP x TRV). The kidney is normal in size, contour, and echogenicity. Renal cortical thickness is normal. No focal parenchymal lesions or hydronephrosis. Three stones are noted in the lower pole measuring 1.0 x 0.6 x 0.9 cm, 1.7 x 0.9 x 1.6 cm and 0.7 x 0.6 x 0.6 cm. At the time of the prior study, 2 stones were noted and on today's study these appear larger. US/US renal BI IMPRESSION: Bilateral renal calculi. In 08/25/2019 the stones appeared more staghorn in appearance and obviously the patient has been undergoing treatment with fragmentation of the stones. Residual stones remain as described above, slightly increased in size when compared to the prior ultrasound.
== END 2021-06-19 12:48 | disposition home or self-care (01) ==
LOC: HO.HMGCX 12:47
PROVIDERS: PCP Internal Medicine; Visit Provider Urology
DX: N20.0 Calculus of kidney (principal)
CPT/HCPCS: 76775

== ENCOUNTER → 2021-07-05 11:17 | Outpatient (BNVA) | payer MEDICARE, MEDICAID, SELFPAY | PROVIDERS: PCP Internal Medicine; Visit Provider Urology | DX: N20.0 Calculus of kidney (principal) | CPT/HCPCS: 99212 ==

== ENCOUNTER 2021-09-11 11:02 | Outpatient (REF) | payer MEDICARE, MEDICAID, SELFPAY ==
[2021-09-11 14:31] LABS: Cholesterol 235 mg/dL; HDL Cholesterol 61 mg/dL; LDL Cholesterol Calculated 149 mg/dl; Triglycerides 125 mg/dL
== END 2021-09-11 11:03 | disposition home or self-care (01) ==
LOC: HO.HMGCLDS 11:02
PROVIDERS: Visit Provider Internal Medicine
DX: E78.5 Hyperlipidemia, unspecified (principal)
CPT/HCPCS: 36415; 80061

== ENCOUNTER 2022-01-23 12:02 | Outpatient (REF) | payer MEDICARE, SELFPAY ==
[2022-01-23 14:18] LABS: Alanine Aminotransferase 18 U/L (0-31); Anion Gap 12 (12-20); Aspartate Amino Transferase 23 U/L (5-31); Blood Urea Nitrogen 9 mg/dL (9-16); Carbon Dioxide 27 mmol/L (22-29); Chloride 106 mmol/L (96-108); Cholesterol 254 mg/dL; Estimated Glomerular Filt Rate > 60; Glucose Fasting 92 mg/dL (60-99); HDL Cholesterol 67 mg/dL; LDL Cholesterol Calculated 165 mg/dl; Potassium 3.9 mmol/L (3.3-5.1); Sodium 141 mmol/L (135-145); Triglycerides 111 mg/dL
[2022-01-23 14:33] LABS: Vitamin D 25-OH Total 41.8 ng/mL (>30)
== END 2022-01-23 12:03 | disposition home or self-care (01) ==
LOC: HO.HMGCLDS 12:02
PROVIDERS: PCP Internal Medicine; Visit Provider Internal Medicine
DX: Z00.01 Encounter for general adult medical examination with abnormal findings (principal); E55.9 Vitamin D deficiency, unspecified; E78.5 Hyperlipidemia, unspecified; Z78.0 Asymptomatic menopausal state
CPT/HCPCS: 36415; 80048; 80061; 82306; 84450; 84460

== ENCOUNTER → 2022-03-19 13:38 | Outpatient (BNVA) | payer MEDICARE, SELFPAY | PROVIDERS: PCP Internal Medicine; Visit Provider Nurse Practitioner | DX: Z01.818 Encounter for other preprocedural examination (principal); Z86.010 Personal history of colon polyps | CPT/HCPCS: 99202 ==

== ENCOUNTER 2022-05-13 13:36 | Outpatient (REF) | payer MEDICARE, SELFPAY ==
--- NOTE | ~2022-05-13 | MM_ITS ---
EXAMINATION: MM SCREENING DIGITAL BREAST TOMOSYNTHESIS, BILATERAL CLINICAL INFORMATION: Screening. Asymptomatic. The lifetime risk of breast cancer based on the Tyrer-Cuzick Model is 6%. COMPARISON: Mammography: 04/16/2021, 08/18/2019; outside mammography 03/05/2015 ([facility]) TECHNIQUE: Digital breast tomosynthesis is performed in both the craniocaudal and mediolateral oblique views along with computer-aided detection (CAD). Synthesized 2D images are generated from the tomosynthesis. FINDINGS: There are scattered areas of fibroglandular density (ACR BI-RADS breast composition Category b). There are no significant masses, abnormal calcifications, or other abnormalities. Parenchymal pattern is similar to prior studies. No developing density. Small smooth nodule nodule anterior left breast is decreased in size. There is a stable smooth nodule likely intramammary node upper outer right breast. The axilla and skin contours are unremarkable. MM/MM tomosynthesis screening BI IMPRESSION: No mammographic evidence of malignancy. ASSESSMENT: BI-RADS 2: Benign RECOMMENDATION: Routine annual mammography screening. This patient's information was entered into a reminder system with a target due date for their next mammogram.
== END 2022-05-13 13:37 | disposition home or self-care (01) ==
LOC: HO.MAMMO 13:36
PROVIDERS: PCP Internal Medicine; Visit Provider Internal Medicine
DX: Z12.31 Encounter for screening mammogram for malignant neoplasm of breast (principal)
CPT/HCPCS: 77063; 77067

== ENCOUNTER 2022-06-13 12:45 | Outpatient (REF) | payer MEDICARE, SELFPAY ==
--- NOTE | ~2022-06-13 | US_ITS ---
EXAMINATION: US RETROPERITONEAL LIMITED (RENAL ONLY) CLINICAL INFORMATION: Calculus of kidney. COMPARISON: X-ray KUB 06/13/2022 and 05/24/2020. Renal ultrasound 06/19/2021 and 11/04/2019. CT abdomen and pelvis 08/25/2019. TECHNIQUE: Real-time imaging of the kidneys. FINDINGS: RIGHT KIDNEY: 10.7 x 4.4 x 4.2 cm (SAG x AP x TRV). The kidney is normal in size, contour, and echogenicity. Renal cortical thickness is normal. No focal parenchymal lesions or hydronephrosis. Multiple nonobstructing calculi in the mid and lower poles measuring 0.7, 1.1, and 0.6 cm. LEFT KIDNEY: 14.1 x 5.6 x 6.7 cm (SAG x AP x TRV). The kidney is normal in size, contour, and echogenicity. Renal cortical thickness is normal. No focal parenchymal lesions. Multiple nonobstructing calculi in the lower pole measuring 0.7 and 0.8 cm. Mild pelviectasis. US/US renal BI IMPRESSION: 1. Bilateral nonobstructing renal calculi. 2. Mild left pelviectasis.
--- NOTE | ~2022-06-13 | XR_ITS ---
EXAMINATION: XR ABDOMEN KUB CLINICAL INDICATION: Renal calculus. COMPARISON: Renal ultrasound same day and KUB 05/24/2020. TECHNIQUE: AP view of the abdomen. FINDINGS: On the right, 3 calculi overlie the right kidney which appear increased in number and size since the prior study each measuring about 7 mm. On the left, multiple calcifications are seen overlying the lower pole with what appears to be one long calculus extending into lower pole calyx measuring about 20 x 6 mm in size. Previously seen left-sided double-J stent is no longer present. Degenerative changes are present in the spine. No calcifications are seen overlying the bladder. Rounded 1.3 cm calcification overlying the right pelvis just below and lateral to the SI joint is not related to the renal collecting system and most likely a large phlebolith. XR/XR KUB IMPRESSION: Bilateral renal calculi, increased in number and size since the prior study.
== END 2022-06-13 12:46 | disposition home or self-care (01) ==
LOC: HO.US 12:45
PROVIDERS: Visit Provider Urology
DX: N20.0 Calculus of kidney (principal)
CPT/HCPCS: 74018; 76775

== ENCOUNTER 2022-07-08 11:16 | Outpatient (REF) | payer MEDICARE, SELFPAY | END 2022-07-08 11:17 | disposition home or self-care (01) | LOC: HO.LAB 11:16 | PROVIDERS: Visit Provider Nurse Practitioner Family | DX: N39.0 Urinary tract infection, site not specified (principal); N20.0 Calculus of kidney; Z79.899 Other long term (current) drug therapy | CPT/HCPCS: 51798; 87086; 87088; 87186; 99212 ==

== ENCOUNTER 2022-08-25 08:53 | Day surgery (SDC) | payer MEDICARE, SELFPAY ==
[2022-08-19 19:37] VITALS: BMI 31.4
--- NOTE | 2022-08-25 09:29 | MHC.SHP ---
Pre-Procedural Eval Section A Date of Service: 08/25/22 The patient is an INPATIENT: No The History & Physical has been completed within 30 days and I have reviewed it.: No Section B Chief Complaint: screening, Benign neoplasm of colon, Details of Present Illness: Colon cancer screening, history of colon polyps Relevant Family History (Specify if Yes): No Relevant Social History: None Present Medications: see Short Stay Collaborative assessment Medical History: Significant History (Dyslipidemia Endometrial thickening on ultrasound Glaucoma Hemorrhoids Needs flu shot Nephrolithiasis Osteoporosis Tubular adenoma of colon) History of Previous Operations: Relevant previous surgery/procedure and date(s) (History of colonoscopy, history of lithotripsy) Allergies: Allergies Allergy/AdvReac Type Severity Reaction Status Date / Time No Known Allergies Allergy Verified 08/20/22 10:34 [No Known Allergies*] Review of Systems Sugical H&P ROS: Negative: Constitution, Cardiovascular, Respiratory and Gastrointestinal Exam Surgical H&P Exam: Normal: Heart, Normal: Lungs, Normal: Extremities and Normal: Abdomen Plan Diagnosis/Plan: Unchanged I have reviewed the history and physical and performed a pertinent physical examination on my patient. No changes have occurred unless specified. Time Spent With Patient Time: Total time managing care of this patient today ____ minutes.
--- NOTE | 2022-08-25 10:12 | P.BOP_ITS ---
Brief Operative Note Date of Service: 08/25/22 Pre-op diagnosis: Colon cancer screening, history of colon polyps Post-op diagnosis: other (COLON POLYPS, DIVERTICULOSIS, HEMORRHOIDS) Procedure: COLONOSCOPY TO CECUM WITH SNARE POLYPECTOMY Surgeon: Dev Chamberlain MD Anesthesia: MAC Was an Computer Repair Instructor used for this Procedure?: Yes Computer Repair Instructor: Bonnie Montenegro Estimated blood loss (mL): 0 Pathology: other ( A. transverse colon polyp B. sigmoid colon polyps (2)) Condition: stable Disposition: PACU
--- NOTE | 2022-08-25 10:12 | W.PM.OPN ---
Operative Note Operative Note Date of Service: 08/25/22 Narrative: Pre-op diagnosis: Colon cancer screening, history of colon polyps Post-op diagnosis:?other (COLON POLYPS, DIVERTICULOSIS, HEMORRHOIDS) Surgeon: Dev Chamberlain MD Anesthesia:?MAC COLONOSCOPY TILL CECUM WITH SNARE POLYPECTOMY Consent: Indications for the procedure and potential complications of bleeding, perforation, reaction to medications and missed diagnosis were discussed with the patient and informed consent was obtained. Instrument: Olympus PCF H 190 L variable stiffness pediatric colonoscope Monitoring: Vital signs and clinical assessment, intermittent blood pressure monitoring, continuous EKG monitoring, Pulse oximetry and Carbon Dioxide monitoring were done throughout the procedure. Colon withdrawl time was 17 minutes. Procedure: The patient was placed in the left lateral decubitis position and pre-procedure medications were administered. After a digital rectal examination of the ano-rectum, the video colonoscope was inserted into the rectum and advanced through the colon to the cecum. The colonoscope was slowly withdrawn in a retrograde panoramic fashion and the colon mucosa was carefully examined including a retroflexed view of the rectum. Findings and interventions are described below. Procedure Difficulty: LLQ pressure applied to intubate the cecum Findings: Terminal Ileum: Not evaluated Cecum: Normal Ascending Colon: Normal Transverse Colon: A 10-12 mm sessile polyp removed with a hot snare Descending Colon: Moderate diverticulosis Sigmoid Colon: Two 9 to 10 mm sessile polyps removed with a hot snare. Moderate diverticulosis Rectum: Normal Ano-rectum: Moderate internal hemorrhoids Colon preparation: Excellent Impression and Post Procedure Diagnosis: Colonoscopy Findings: Three medium sized polyps removed Moderate diverticulosis seen in the left colon Moderate hemorrhoids on retroflexed exam. Plan: Await pathology results Patient has an appointment on 09/09/22 in the GI Clinic with Jo-Ann Miller NP. Repeat Colonoscopy interval based on path results - in 3 years if polyps are adenomatous and 5 years if polyps are hyperplastic (due to a hx of adenomatous colon polyps). Above findings were reviewed with the patient and colon polyps and diverticulosis handouts were given in the discharge area
--- NOTE | 2022-08-25 10:13 | P.CONAN_ITS ---
HPI - Anesthesia Eval Consult details Narrative: 72 F for colonoscopy [facility] Active Problems Active Problems: All Active Problems (Updated 07/30/22 @ 14:58 by Ruby Luther MD) Vitamin D deficiency (Acute) Osteoporosis (Acute) Dyslipidemia (Acute) Urinary tract infection in female (Acute) Nephrolithiasis (Acute) Preoperative examination (Acute) Tubular adenoma of colon (Acute) Needs flu shot (Acute) Past Medical History Medical History (Updated 07/30/22 @ 14:58 by Ruby Luther MD) Diverticulosis Dyslipidemia Endometrial thickening on ultrasound Glaucoma Hemorrhoids Needs flu shot Nephrolithiasis Osteoporosis Tubular adenoma of colon Vitamin D deficiency Family History Family History Father No problems noted. Mother CVD (cardiovascular disease) Brother No problems noted. Brother No problems noted. Family history of problems with anesthesia: No Surgical History Surgical History H/O colonoscopy History of lithotripsy History of Problems with Anesthesia: No Social History Social History Housing: House Are you a primary laboratory animal care veterinarian to a significant other at home: No Do you presently have visiting nurse or other home services: No Alcohol intake: current Alcohol intake frequency: a few times a week Alcohol type: other Patient Tobacco Use Status: Never used Tobacco e-Cigarette/Vaping Use: Never Used Second Hand Smoke Exposure: No Current occupational status: retired Cognitive needs: No Hearing needs: Yes Vision needs: Yes Meds Allergies Allergy/AdvReac Type Severity Reaction Status Date / Time No Known Allergies Allergy Verified 08/20/22 10:34 [No Known Allergies*] Home Medications Medication Instructions Recorded Confirmed Last Taken Type latanoprost 0.005 % eye drops 1 drp ophthalmic (eye) BEDTIME 05/04/20 08/20/22 Unknown History timolol maleate 0.5 % eye drops 1 drp ophthalmic (eye) BID 06/21/20 08/20/22 Unknown History lgxtuwvh-ghaxarx-slul-lutein tablet tab PO 09/17/21 07/08/22 Unknown History Exam Exam Date and Time: August 25, 2022 1013 Height,Weight and Vital Signs: Height 4 ft 8 in Weight 63.503 kg Airway Mallampati Class: III TM Dist: >3cm Neck ROM: Full Loose/Missing/Broken Teeth: Yes Heart: S1,S2 Lungs: b/l breath sounds Assessment and Plan Assessment Anesthesia Assessment: Anesthesia Plan Discussed and Chart Reviewed Final Anesthetic Review Family History of Problems with Anesthesia: No History of Problems with Anesthesia: No NPO: Yes ASA Class: II Final Preanesthetic Review: Meds/Allgs Chart Reviewed, Consent Obtained/Reviewed and Anes Risks/Benef Reviewed Patient Risk: Intermediate Procedure Risk: Intermediate Anesthetic Plan Anesthetic Plan: MAC: Disposition: Standard PACU
[2022-08-25 10:32] VITALS: BP 143/88; PULSE 77; RESP 16; TEMP 36.3; O2SAT 98
[2022-08-25 11:14] VITALS: BP 130/60; PULSE 105; RESP 20; TEMP 36.1; O2SAT 97
[2022-08-25 11:29] VITALS: BP 155/81; PULSE 89; RESP 20; TEMP 36.3; O2SAT 99
== END 2022-08-25 12:10 | disposition home or self-care (01) ==
PROVIDERS: PCP Internal Medicine; Visit Provider Internal Medicine Gastroenterology
PROC: 0DJD8ZZ Inspection of Lower Intestinal Tract, Via Natural or Artificial Opening Endoscopic (ICD-10-PCS; CPT 45378; principal; 2022-08-25 10:20)
DX: Z12.11 Encounter for screening for malignant neoplasm of colon (principal); Z86.010 Personal history of colon polyps; D12.5 Benign neoplasm of sigmoid colon; K63.5 Polyp of colon; K57.30 Diverticulosis of large intestine without perforation or abscess without bleeding; K64.8 Other hemorrhoids; E78.5 Hyperlipidemia, unspecified; M81.0 Age-related osteoporosis without current pathological fracture; H40.9 Unspecified glaucoma; Z79.899 Other long term (current) drug therapy; Z87.442 Personal history of urinary calculi
CPT/HCPCS: 45385; 88305

== ENCOUNTER → 2022-09-09 12:40 | Outpatient (BNVA) | payer MEDICARE, SELFPAY | PROVIDERS: PCP Internal Medicine; Visit Provider Nurse Practitioner | DX: Z01.818 Encounter for other preprocedural examination (principal); D12.6 Benign neoplasm of colon, unspecified | CPT/HCPCS: 99212 ==

== ENCOUNTER 2022-09-23 11:05 | Outpatient (REF) | payer MEDICARE, SELFPAY ==
[2022-09-23 14:44] LABS: Cholesterol 270 mg/dL; HDL Cholesterol 73 mg/dL; LDL Cholesterol Calculated 177 mg/dl; Triglycerides 101 mg/dL
[2022-09-23 15:02] LABS: Vitamin D 25-OH Total 28.6 ng/mL (>30)
== END 2022-09-23 11:06 | disposition home or self-care (01) ==
LOC: HO.HMGCLDS 11:05
PROVIDERS: Visit Provider Internal Medicine
DX: E55.9 Vitamin D deficiency, unspecified (principal); E78.5 Hyperlipidemia, unspecified
CPT/HCPCS: 36415; 80061; 82306

== ENCOUNTER 2022-11-24 12:26 | Outpatient (REF) | payer MEDICARE, SELFPAY ==
[2022-11-24 14:33] LABS: Anion Gap 12 (12-20); Blood Urea Nitrogen 12 mg/dL (9-16); Calcium 9.2 mg/dL (8.4-10.2); Carbon Dioxide 27 mmol/L (22-29); Chloride 108 mmol/L (96-108); Estimated Glomerular Filt Rate > 60; Glucose Fasting 88 mg/dL (60-99); Potassium 3.9 mmol/L (3.3-5.1); Sodium 143 mmol/L (135-145)
== END 2022-11-24 12:27 | disposition home or self-care (01) ==
LOC: HO.HMGCLDS 12:26
PROVIDERS: PCP Internal Medicine; Visit Provider Internal Medicine
DX: I10 Essential (primary) hypertension (principal)
CPT/HCPCS: 36415; 80048

== ENCOUNTER 2022-12-10 12:48 | Outpatient (REF) | payer MEDICARE, SELFPAY ==
--- NOTE | ~2022-12-10 | US_ITS ---
EXAMINATION: US RETROPERITONEAL COMPLETE (RENAL) CLINICAL INFORMATION: Urinary tract infection. COMPARISON: X-ray KUB 06/13/2022. Ultrasound renal 08/13/2021 and 06/19/2021. TECHNIQUE: Real-time imaging of the kidneys and bladder. FINDINGS: RIGHT KIDNEY: 12.5 x 4.1 x 6.5 cm (SAG x AP x TRV). The kidney is normal in size, contour, and echogenicity. Renal cortical thickness is normal. No focal parenchymal lesions or hydronephrosis. There are a few echogenic stones in left kidney without caliectasis. The measure 1.1 x 0.7 x 0.8 cm, and 0.9 x 0.7 x 1.0 cm and 0.8 x 0.5 x 1.3 cm. LEFT KIDNEY: 14.2 x 6.1 x 6.6 cm (SAG x AP x TRV). The kidney is normal in size, contour, and echogenicity. Renal cortical thickness is normal. No focal parenchymal lesions or hydronephrosis. There are a few echogenic stones measuring 1.9 x 0.6 x 1.8 cm and 0.6 x 0.3 0.6 seen in lower pole. A UPJ echogenic calculi measure 0.8 x 0.5 x 0.6 cm. BLADDER: Well distended and normal. Bilateral ureteral jets are demonstrated. Prevoid bladder volume is 200 mL. Postvoid bladder volume is 37 mL. US/US retroperitoneal comp IMPRESSION: 1. Bilateral echogenic renal calculi without caliectasis or hydronephrosis. 2. Small postvoid residual bladder volume. Normal bilateral ureteral jets seen.
== END 2022-12-10 12:49 | disposition home or self-care (01) ==
LOC: HO.HMGCX 12:48
PROVIDERS: PCP Internal Medicine; Visit Provider Nurse Practitioner Family
DX: N39.0 Urinary tract infection, site not specified (principal); N20.0 Calculus of kidney
CPT/HCPCS: 76770

== ENCOUNTER 2023-02-06 18:13 | Emergency (ER) | payer MEDICARE, SELFPAY ==
[2023-02-06 18:29] VITALS: BP 178/91; PULSE 82; RESP 16; TEMP 36.3; O2SAT 100; BMI 42.3
--- NOTE | 2023-02-06 18:34 | ED_ITS ---
HPI - General Adult General Chief complaint: Skin/Abscess/Foreign Body Stated complaint: bite on left hand Time Seen by Provider: 02/06/23 19:50 Source: patient Mode of arrival: ambulatory Limitations: no limitations History of Present Illness HPI narrative: Patient comes to the emergency room complaining of a dog bite. Patient states that this happened yesterday. Patient has an old dog who was in a lot of pain and needed to be euthanized. While holding the dog, the patient accidentally got bitten. Patient states that this was her dog, was up-to-date with immunizations. Today, patient complaining of swelling and pain in the left hand Related Data Home Medications Medication Instructions Recorded Confirmed latanoprost 0.005 % eye drops 1 drp ophthalmic (eye) BEDTIME 05/04/20 08/20/22 timolol maleate 0.5 % eye drops 1 drp ophthalmic (eye) BID 06/21/20 08/20/22 nfibmrkk-bzvrdem-cxuv-lutein tablet tab PO 09/17/21 07/08/22 Previous Rx's Medication Instructions Recorded alendronate 70 mg tablet 70 mg PO QWEEK 30 days #5 tabs 10/17/22 cholecalciferol (vitamin D3) 1,250 1,250 mcg PO QWEEK 3 months #13 10/28/22 mcg (50,000 unit) capsule caps lisinopril 5 mg tablet 5 mg PO DAILY #30 tabs 10/28/22 amoxicillin 500 mg-potassium 1 tab PO Q12H #20 tabs 02/06/23 clavulanate 125 mg tablet (Augmentin) Allergies Allergy/AdvReac Type Severity Reaction Status Date / Time No Known Allergies Allergy Verified 02/06/23 18:29 [No Known Allergies*] Review of Systems Review of Systems: Constitutional : No Weight loss, No Fever, No Chills, No Night Sweats, No Fa tigue, No Malaise ENT/Mouth : No Hearing loss, No Ear Pain, No Nasal Congestion, No Sinus Pain, No Hoarseness, No sore throat, No Rhinorrhea, No Swallowing Difficulty Eyes: No Eye Pain, No Swelling, No Redness, No Foreign Body, No Discharge, No Vision Changes Cardiovascular : No Chest Pain, No SOB, No Dyspnea on Exertion, No Orthopnea, No Edema, No Palpitations Respiratory : No Cough, No Sputum, No Wheezing, No Smoke Exposure, No Dyspnea Gastrointestinal : No Nausea, No Vomiting, No Diarrhea, No Constipation, No abdominal Pain, No Hematochezia, No Melena Genitourinary : no irregular bleeding, No Dysuria, No Urinary Frequency, No Hematuria, No Urinary Incontinence, No Urgency, No Flank Pain, No Urinary Flow Changes, No Hesitancy Musculoskeletal : No joint pain, No Myalgias, No Joint Swelling Skin : Puncture wound to the dorsum of the left hand erythema and swelling. Neuro : No Weakness, No Numbness, No Paresthesias, No Loss of Consciousness, No Dizziness, No Headache Psych : No Anxiety/Panic, No Depression, No SI/HI/AH/VH, No Social Issues, Heme/Lymph: No Bruising, No Bleeding,No Lymphadenopathy Endocrine : No Polyuria, No Polydipsia, No Temperature Intolerance [facility] Past Medical History Medical History Diverticulosis Dyslipidemia Endometrial thickening on ultrasound Essential hypertension Glaucoma Hemorrhoids Needs flu shot Nephrolithiasis Osteoporosis Tubular adenoma of colon Vitamin D deficiency Surgical History H/O colonoscopy History of lithotripsy Family History Family History Father No problems noted. Mother CVD (cardiovascular disease) Brother No problems noted. Brother No problems noted. Social History Social History Housing: House Are you a primary out of school hours care worker to a significant other at home: No Do you presently have visiting nurse or other home services: No Alcohol intake: never Patient Tobacco Use Status: Never used Tobacco Smoked in Last 30 Days: No e-Cigarette/Vaping Use: Never Used Second Hand Smoke Exposure: No Use of substances other than those prescribed or required for medical reasons: No Advance Directives: No Advance Directives Information Provided: No Current occupational status: retired Cognitive needs: No Hearing needs: Yes Vision needs: Yes Physical Exam ED Vital Signs: Vital Signs - 24 hr 02/06/23 18:29 Temperature 97.4 F Pulse Rate 82 Respiratory Rate 16 Blood Pressure 178/91 H Pulse Oximetry 100 Oxygen Delivery Method Room Air BMI result Body Mass Index 42.3 Const Other: Appearance: Alert. Oriented X3. No acute distress. Eyes: Pupils equal, round and reactive to light. ENT: Pharynx normal. Neck: Normal inspection. Neck supple. No lymph nodes noted. No crepitus CVS: Normal heart rate and rhythm. Pulses normal. Normal S1 and S2 Respiratory: No respiratory distress. Breath sounds normal. No Wheezing. No rales Abdomen: Soft and nontender. No rigidity. No distention. Skin: Skin warm and dry. Extremities: No lower extremity edema. No Lacerations. No Rash. There is a puncture wound to the dorsum of the left hand. Erythema, patient able to flex and extend all fingers of the hand. Right hand within normal limits Neuro: Oriented X 3. No motor deficit. No sensory deficit. Moving all extremities. No slurred speech. CN 2 through 12 grossly intact Psych: calm, cooperative, normal affect Course Course Course Narrative: This is an RME: Additional HPI, ROS, PE not included below will be deferred to primary provider. 72 yo F presents w/ L hand pain and swelling s/p dog bite yesterday. Reports left hand pain, swelling and redness. Dog was UTD on immunization including rabies. Patients tetanus not up to date. 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 Medications Administered Discontinued Medications Generic Name Dose Route Start Last Admin Trade Name Luis Armando PRN Reason Stop Dose Admin Amoxicillin/Clavulanate Potassium 875 mg 02/06/23 20:02 02/06/23 20:07 Amoxicillin/Potassium Clav 875 Mg Tablet PO 02/06/23 20:03 875 mg ONCE ONE Administration Diphtheria/Tetanus/Acell Pertussis 0.5 ml 02/06/23 18:33 02/06/23 19:59 Diphth,Pertus(Acell),Tet Adult 0.5 Ml Syringe IM 02/06/23 18:34 0.5 ml .ONCE ONE Administration Medical Decision Making Medical Decision Making [facility] Narrative: Skin was-patient received a Tdap booster -First dose of Augmentin given in the emergency room - patient's hand was delineated with a marker, patient instructed to return if the erythema passes the line or if she has any new symptoms. - Patient states that she has no pain in the hand, patient is able to flex and extend all fingers of the hand. Oppose he thumb. tenosynovitis not suspect Differential Diagnosis Differential Diagnoses: The differential diagnosis associated with the presentation includes ( animal bite, cellulitis) Lab Data 02/06/23 19:12 02/06/23 19:06 Labs: Lab Results 02/06/23 02/06/23 Range/Units 19:06 19:12 WBC 8.3 (4.8-10.8) X10*3/uL RBC 4.17 L (4.20-5.50) X10*6/uL Hgb 13.3 (12.0-16.0) g/dl Hct 39.5 (37.0-47.0) % MCV 94.7 (80.0-98.0) fL MCH 31.9 (27.0-33.0) pg MCHC 33.7 (31.0-35.0) g/dl RDW 12.8 (11.0-16.0) % Plt Count 273 (160-400) X10*3/uL MPV 10.3 (9.4-12.3) fL Immature Gran % (Auto) 0.2 (0.0-0.4) % Neut % (Auto) 67.6 (45-73) % Lymph % (Auto) 20.4 (20-40) % Union % (Auto) 11.5 H (2-11) % Eos % (Auto) 0.2 (0-4) % Baso % (Auto) 0.1 (0-2) % Lymph # (Auto) 1.7 (1.2-4.9) X10*3/uL Union # (Auto) 1.0 (0.1-1.2) X10*3/uL Eos # (Auto) 0.0 (0.0-0.4) X10*3/uL Baso # (Auto) 0.0 (0.0-0.2) X10*3/uL Abs Immat Gran (auto) 0.02 (0.00-0.03) X10*3/uL Absolute Neuts (auto) 5.6 (2.0-8.3) x10*3/uL Absolute Nucleated RBC 0.000 (0.0-0.012) X10*3/uL Nucleated RBC % (auto) 0.0 (0.0-0.2) /100WBC Sodium 141 (135-145) mmol/L Potassium 3.9 (3.3-5.1) mmol/L Chloride 109 H (96-108) mmol/L Carbon Dioxide 20 L (22-29) mmol/L Anion Gap 16 (12-20) BUN 16 (9-16) mg/dL Creatinine 0.67 (0.5-1.4) mg/dL Estim Creat Clear Calc 69.0 Estimated GFR > 60 Random Glucose 81 (60-115) mg/dL Calcium 9.5 (8.4-10.2) mg/dL Total Bilirubin 0.8 (0.0-1.0) mg/dL AST 44 H (5-31) U/L ALT 23 (0-31) U/L Alkaline Phosphatase 104 (39-117) U/L Total Protein 7.9 (6.5-8.0) g/dL Albumin 4.3 (3.5-5.0) g/dL Discharge Plan Discharge Clinical Impression: Cellulitis of hand Patient Disposition: Home, Self-Care Instructions: Cellulitis (ED) Additional Instructions: Please follow-up with your primary care physician tomorrow. If you have any worsening or new symptoms, please return to the emergency room or call 911 Prescriptions: New amoxicillin-pot clavulanate [Augmentin] 500-125 mg tablet 1 tab PO Q12H Qty: 20 0RF No Action alendronate 70 mg tablet 70 mg PO QWEEK 30 Days Qty: 5 3RF latanoprost 0.005 % drops 1 drp ophthalmic (eye) BEDTIME timolol maleate 0.5 % drops 1 drp ophthalmic (eye) BID zahdbwru-ufwgwjp-tlae-lutein Tablet PO lisinopril 5 mg tablet 5 mg PO DAILY Qty: 30 5RF cholecalciferol (vitamin D3) 1,250 mcg (50,000 unit) capsule 1,250 mcg PO QWEEK 90 Days Qty: 13 0RF
--- NOTE | 2023-02-06 20:20 | PC.NURSE ---
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
--- NOTE | 2023-02-06 20:34 | PC.NURSE ---
Discharge instructions given and explained to pt No apparent distress aox4 All of pt's questions answered Ambulates safely and independently
[2023-02-06 20:38] VITALS: BP 138/75; PULSE 87; RESP 18; TEMP 36.7; O2SAT 97
--- NOTE | 2023-02-06 20:41 | PC.NURSE ---
CMS intact pulse norm
== END 2023-02-06 20:42 | disposition home or self-care (01) ==
PROVIDERS: Emergency Provider Emergency Medicine
DX: S61.452A Open bite of left hand, initial encounter (principal); S60.512A Abrasion of left hand, initial encounter; L03.114 Cellulitis of left upper limb; W54.0XXA Bitten by dog, initial encounter; Y93.9 Activity, unspecified; Y92.9 Unspecified place or not applicable; Y99.9 Unspecified external cause status; Z79.899 Other long term (current) drug therapy; Z23 Encounter for immunization
CPT/HCPCS: 36415; 80053; 85025; 90471; 90715; 99284

== ENCOUNTER 2024-06-14 11:01 | Outpatient (REF) | payer MEDICARE, SELFPAY ==
[2024-06-14 15:04] LABS: Alanine Aminotransferase 22 U/L (0-31); Anion Gap 13 (12-20); Aspartate Amino Transferase 31 U/L (5-31); Blood Urea Nitrogen 11 mg/dL (9-16); Calcium 9.1 mg/dL (8.4-10.2); Carbon Dioxide 26 mmol/L (22-29); Chloride 105 mmol/L (96-108); Cholesterol 248 mg/dL (<200); Estimated Glomerular Filt Rate > 60; Glucose Fasting 81 mg/dL (60-99); HDL Cholesterol 72 mg/dL (>40); LDL Cholesterol Calculated 158 mg/dL (<100); Potassium 3.5 mmol/L (3.3-5.1); Sodium 140 mmol/L (135-145); Triglycerides 90 mg/dL (<150); Vitamin D 25-OH Total 26.3 ng/mL (>30)
== END 2024-06-14 11:02 | disposition home or self-care (01) ==
LOC: HO.HMGCLDS 11:01
PROVIDERS: Visit Provider Internal Medicine
DX: Z00.00 Encounter for general adult medical examination without abnormal findings (principal); I10 Essential (primary) hypertension; M81.0 Age-related osteoporosis without current pathological fracture; E78.5 Hyperlipidemia, unspecified; E55.9 Vitamin D deficiency, unspecified
CPT/HCPCS: 36415; 80048; 80061; 82306; 84450; 84460; 96127; 99212; 99397

== ENCOUNTER 2024-06-14 11:01 | Outpatient (AMB) | payer MEDICARE, SELFPAY ==
--- NOTE | 2024-06-14 11:04 | A.OFFPC_ITS ---
Vital Signs 06/14/24 11:06 Height 4 ft 8 in Weight 138 lb BMI 30.9 BP 158/92 H Blood Pressure Location Lt brachial Position Sitting Pulse 50 Pulse Source Pulse Oximeter Pulse Oximetry (%) 95 Oxygen Delivery Method Room Air Intake Visit Reasons: Annual Physical Intake Note: Pt is here today for her PE: Last mammogram 05/13/22, bone density scan 04/16/21, colonoscopy 08/25/22 Allergies No Known Allergies [No Known Allergies*] Allergy (Verified 06/14/24 11:36) Medication List - Last Reconciled 06/14/24 by Ruby Luther MD latanoprost 0.005% 1 drp ophthalmic (eye) BEDTIME lisinopril 5 mg PO DAILY pmyenxfj-dbcosqd-vvfv-lutein tabs PO timolol maleate 0.5% 1 drp ophthalmic (eye) BID Tobacco use date assessed: 06/14/24 Fall risk assessment: No Falls in past year Last assessed Fall Risk: 06/14/24 Dental Screening Dental Screen Date: 06/14/24 Did you have a dental visit in the last 12 months?: Yes Did you have a dental problem in the last 6 months where you did not have access to dental care?: No Was dental information given to patient?: Patient has dentist HPI Annual Physical HPI Details 73 year-old lady with past medical histo ry of hypertension, osteoporosis , glaucoma and dyslipidemia, here today for her physical exam. She is overdue for her screening mammogram, last done 05/13/2022, as well as her bone density scan done 04/16/2021 which showed osteoporosis in left femoral neck. Has stopped taking alendronate approximately a year ago. Does not want to keep taking Blood pressure still remaining above goal despite taking lisinopril 5 mg daily. [facility] Medical History Essential hypertension Osteoporosis Tubular adenoma of colon Needs flu shot Vitamin D deficiency Dyslipidemia Endometrial thickening on ultrasound Hemorrhoids Diverticulosis Glaucoma Nephrolithiasis Surgical History H/O colonoscopy History of lithotripsy Family History Father No problems noted. Mother CVD (cardiovascular disease) Brother No problems noted. Brother No problems noted. Social History Housing: House Are you a primary companion caregiver to a significant other at home: No Do you presently have visiting nurse or other home services: No Alcohol intake: never Patient Tobacco Use Status: Never used Tobacco e-Cigarette/Vaping Use: Never Used Second Hand Smoke Exposure: No Current occupational status: retired Cognitive needs: No Hearing needs: Yes Vision needs: Yes Questionnaire PHQ-9 Over the last 2 weeks, how often have you been bothered by any of the following problems? 1. Little interest or pleasure in doing things: not at all 2. Feeling down, depressed, or hopeless: not at all 3. Trouble falling or staying asleep, or sleeping too much: not at all 4. Feeling tired or having little energy: not at all 5. Poor appetite or overeating: not at all 6. Feeling bad about yourself - or that you are a failure or have let yourself or your family down: not at all 7. Trouble concentrating on things, such as reading the newspaper or watching television: not at all 8. Moving or speaking so slowly that other people could have noticed. Or the opposite - being so fidgety or restless that you have been moving around a lot more than usual: not at all 9. Thoughts that you would be better off or of hurting yourself in some way: not at all Total score: 0 Depression Screening Interpretation: Negative Depression Screening Done: Yes 76653 - PHQ-9 Billing: Yes Source: Developed by Drs. Zuhair Desouza, Brigitte Kazt, Rowdy Fisher and colleagues, with an educational fidel from [employer]. Thrive Questionnaire Date Thrive assessed: 06/14/24 I am a: Patient What is your living situation today?: I have a steady place to live Within the past 12 months, did the food you bought not last and you didn't have the money to get more?: Never true Within the past 12 months, did you worry whether your food would run out before you got money to buy more?: Never true Do you have trouble paying for medicines?: No Do you have trouble getting transportation to medical appointments?: No Do you have trouble paying your heating and electricity bill?: No Do you have trouble taking care of your child, family member or friend?: No Do you have trouble with day-to-day activities such as bathing, preparing meals, shopping, managing finances, etc.?: No Are you currently unemployed and looking for a job?: No Are you interested in more education?: No THRIVE Score: 0 AUDIT C Alcohol Use Questionnaire (AUDIT-C) 1. How often do you have a drink containing alcohol?: Monthly or less 2. How many drinks containing alcohol do you have on a typical day when you are drinking?: 1 or 2 3. How often do you have six or more drinks on one occasion?: Never Total Score: 1 OG-7 AMB Questionnaire OG-7 Date OG - 7 assessed: 06/14/24 Feeling nervous, anxious, or on edge: 0 = Not at all Not being able to stop or control worryin = Not at all Worrying too much about different things: 0 = Not at all Trouble relaxin = Not at all Being so restless that it is hard to sit still: 0 = Not at all Becoming easily annoyed or irritable: 0 = Not at all Feeling afraid as if something awful might happen: 0 = Not at all Total OG-7 score (0-4 normal; 5-9 mild; 10-14 moderate; 15-21 severe): 0 Source: Developed by Drs. Zuhair Desouza, Brigitte Katz, Rowdy Fisher and colleagues, with an educational fidel from [employer]. Review of Systems Const Denies body aches, Denies chills, Denies fatigue, Denies frequent falls, Denies headache(s) and Denies malaise Eyes Details: Currently followed by the eye center for her glaucoma Reports no additional complaints ENT Details: Impaired hearing, wears hearing aids Denies headache(s) Card Denies chest pain, Denies rapid heart rate, Denies irregular heart rhythm and Denies lightheadedness Resp Reports no additional complaints GI Reports no additional complaints Reports no additional complaints Musc Reports no additional complaints Skin/Breast Denies breast pain, Denies breast mass, Denies lesions and Denies rash Neuro Denies frequent falls and Denies headache(s) Psych Reports no additional complaints Endo Denies fatigue Roger/Lymph Reports no additional complaints Aller/Immun Reports no additional complaints Physical exam (Primary Care) Vital Signs: Last Vital Signs Pulse 50 06/14/24 11:06 BP 158/92 H 06/14/24 11:06 Pulse Ox 95 06/14/24 11:06 Oxygen Delivery Method Room Air 06/14/24 11:06 BMI result Body Mass Index 30.9 BMI Assessment/Plan discussion: High BMI High, discussed plan: lifestyle, weight reduction, dietary and physical activity Tobacco/Smoking Status: Tobacco use Status Tobacco use date assessed 06/14/24 06/14/24 11:11 Patient Tobacco Use Status Never used Tobacco 06/14/24 11:06 e-Cigarette/Vaping Use Never Used 06/14/24 11:06 PHQ-9: PHQ-9 Score PHQ-9: Total score 0 06/14/24 11:34 Depression Screening Interpretation: Negative Thrive Assessment: Date of Thrive Assessment Date Thrive assessed 06/14/24 06/14/24 11:13 Const General: comfortable, no acute distress and alert Nutritional Appearance: obese Orientation/consciousness: patient oriented x3 HENMT Head: Yes normocephalic Ears: external ears normal, TM's normal bilaterally, EAC's normal and hearing grossly impaired (Wears hearing aids bilateral) Mouth: Normal oral and palatal mucosa present and moist mucous membranes Neck Neck: Yes full ROM, Yes no lymphadenopathy and Yes supple Thyroid: Thyroid normal Resp Effort & Inspection: normal respiratory effort and able to speak in complete sentences Auscultation: clear to auscultation bilaterally Cardio Rate: regular rate Rhythm: regular rhythm Heart sounds: S1 normal heart sound present and S2 normal heart sound present GI Palpation (GI): Soft to palpation, nontender, no guarding and no masses Auscultation: normal bowel sounds Back/Spine/Pelvis Back: No back tenderness Skin General skin exam: no rashes or lesions noted Neuro General: patient oriented x3, gait normal, Normal light touch and pain sensation, no focal motor deficits and CN's II-XI intact bilaterally Extrem General: Yes full ROM, Yes no joint enlargement, Yes no clubbing, cyanosis or edema, Yes no pedal edema, Yes no calf tenderness and Yes normal gait Coding Level of Care Code Est Pt Level 4 (89738) Est Pt Prev Care >65y(31818) Diagnoses Essential hypertension I10 Osteoporosis M81.0 Dyslipidemia E78.5 Vitamin D deficiency E55.9 Breast cancer screening by mammogram Z12.31 Additional Codes PHQ-9 - 35178 - PHQ-9 Billing: Yes ([id number]) Assessment & Plan Assessment & Plan (1) Essential hypertension: Code(s): I10 - Essential (primary) hypertension Category: Medical Plan: Blood pressure not at goal of less than 130/80, increase lisinopril dose to 10 mg once aday. Schedule nurse navigator visit in 2 weeks to check blood pressure and see me back for follow-up in 4 months. Reinforced importance of following a low-salt diet and getting regular exercise (2) Osteoporosis: Code(s): M81.0 - Age-related osteoporosis without current pathological fracture Category: Medical Plan: Patient has stopped her taking alendronate now for at least a year, does not want to continue taking it. Will repeat another bone density scan (3) Dyslipidemia: Code(s): E78.5 - Hyperlipidemia, unspecified Category: Medical Plan: Fasting lipid panel ordered. (4) Vitamin D deficiency: Code(s): E55.9 - Vitamin D deficiency, unspecified Category: Medical Plan: Ordered vitamin-D level checked (5) Breast cancer screening by mammogram: Code(s): Z12.31 - Encounter for screening mammogram for malignant neoplasm of breast Plan: Screening mammogram ordered Orders: Orders MM tomosynthesis screening BI 06/14/24 M81.0 - Age-related osteoporosis without current pathological fracture, Z12.31 - Encounter for screening mammogram for malignant neoplasm of breast, Z78.0 - Asymptomatic menopausal state Aspartate Amino Transferase 06/14/24 E55.9 - Vitamin D deficiency, unspecified, E78.5 - Hyperlipidemia, unspecified, I10 - Essential (primary) hypertension, M81.0 - Age-related osteoporosis without current pathological fracture Lipid Panel 06/14/24 E55.9 - Vitamin D deficiency, unspecified, E78.5 - Hyperlipidemia, unspecified, I10 - Essential (primary) hypertension, M81.0 - Age-related osteoporosis without current pathological fracture Vitamin D 25-OH Total 06/14/24 E55.9 - Vitamin D deficiency, unspecified, E78.5 - Hyperlipidemia, unspecified, I10 - Essential (primary) hypertension, M81.0 - Age-related osteoporosis without current pathological fracture XR DEXA axial skeleton 06/14/24 M81.0 - Age-related osteoporosis without current pathological fracture, Z12.31 - Encounter for screening mammogram for malignant neoplasm of breast, Z78.0 - Asymptomatic menopausal state Alanine Aminotransferase 06/14/24 E55.9 - Vitamin D deficiency, unspecified, E78.5 - Hyperlipidemia, unspecified, I10 - Essential (primary) hypertension, M81.0 - Age-related osteoporosis without current pathological fracture Basic Metabolic Panel Fasting 06/14/24 E55.9 - Vitamin D deficiency, unspecified, E78.5 - Hyperlipidemia, unspecified, I10 - Essential (primary) hypertension, M81.0 - Age-related osteoporosis without current pathological fracture Medications: New lisinopril 10 mg PO DAILY 90 tabs 1RF Discontinued lisinopril Discontinued Reason: Doctor's Order 5 mg PO DAILY 30 tabs 1RF I10 - Essential (primary) hypertension
[2024-06-14 11:06] VITALS: BP 158/92; PULSE 50; O2SAT 95; BMI 30.9
== END 2024-06-14 11:59 | disposition home or self-care (01) ==
PROVIDERS: Visit Provider Internal Medicine
DX: Z00.00 Encounter for general adult medical examination without abnormal findings (principal); I10 Essential (primary) hypertension; M81.0 Age-related osteoporosis without current pathological fracture; E78.5 Hyperlipidemia, unspecified; E55.9 Vitamin D deficiency, unspecified; Z12.31 Encounter for screening mammogram for malignant neoplasm of breast

== ENCOUNTER 2024-09-27 12:13 | Outpatient (AMB) | payer MEDICARE, SELFPAY ==
--- NOTE | 2024-09-27 12:17 | MHC.OFFWIV ---
Intake Vital Signs 09/27/24 12:20 Weight 135 lb BP 142/90 H Blood Pressure Location Lt brachial Position Sitting Pulse 106 H Pulse Source Pulse Oximeter Temp 98.1 F Temp Source Oral Pulse Oximetry (%) 96 Oxygen Delivery Method Room Air Intake Visit Reasons: EP lower backache 2 weeks Intake Note: Patient here for lower back pain and fatigued that started about 2 weeks ago after shoveling. Patient Tobacco Use Status: Never used Tobacco Allergies No Known Allergies [No Known Allergies*] Allergy (Verified 09/27/24 12:21) Do you need a note to return to daycare/school/sports/work: No HPI HPI Comments History of Present Illness Details This is a 74-year-old female with a past medical history of hypertension and glaucoma presenting for evaluation of low back pain that she has had for the past 2 weeks after shoveling snow. Patient states the pain is centralized and does not radiate into her lower extremities. Patient has been taking Tylenol without relief for discomfort. Patient also reports having 2 episodes of dysuria yesterday, that she describes as irritation without urinary frequency or fevers. [facility] Medical History Essential hypertension Osteoporosis Tubular adenoma of colon Needs flu shot Vitamin D deficiency Dyslipidemia Endometrial thickening on ultrasound Hemorrhoids Diverticulosis Glaucoma Nephrolithiasis Surgical History H/O colonoscopy History of lithotripsy Family History Father No problems noted. Mother CVD (cardiovascular disease) Brother No problems noted. Brother No problems noted. Social History Housing: House Are you a primary manager urgent care to a significant other at home: No Do you presently have visiting nurse or other home services: No Alcohol intake: never Patient Tobacco Use Status: Never used Tobacco e-Cigarette/Vaping Use: Never Used Second Hand Smoke Exposure: No Current occupational status: retired Cognitive needs: No Hearing needs: Yes Vision needs: Yes Review of Systems Const All systems reviewed & are unremarkable except as noted in HPI and below Eyes Reports no additional complaints ENT Reports no additional complaints and Denies neck pain Card Reports no additional complaints Resp Reports no additional complaints Reports dysuria Musc Reports back pain, Denies myalgias, Denies arthralgias and Denies neck pain Skin/Breast Reports system reviewed and no additional complaints, except as documented Neuro Reports no additional complaints Psych Reports no additional complaints Roger/Lymph Reports no additional complaints Aller/Immun Reports no additional complaints Physical Exam Vital Signs: Last Vital Signs Temp 98.1 F 09/27/24 12:20 Pulse 106 H 09/27/24 12:20 BP 142/90 H 09/27/24 12:20 Pulse Ox 96 09/27/24 12:20 Oxygen Delivery Method Room Air 09/27/24 12:20 Const General: cooperative, comfortable, no acute distress, alert and awake Nutritional Appearance: well nourished Orientation/consciousness: patient oriented x3 Limitations: no limitations Cardio Rate: regular rate (HR 88 upon examination) Rhythm: regular rhythm General: Yes Bimanual renal exam normal bilaterally, Yes bladder normal to palpation and Yes no CVA tenderness Bimanual exam- vagina & uterus: bladder normal to palpation Back/Spine/Pelvis Back: no CVA tenderness Thoracic/Lumbar Spine: paraspinal muscle tenderness on the left greater than right (lumbar), No thoraco-lumbar spasm, No thoracic spinal tenderness and No lumbar spinal tenderness Pelvis: no sciatic notch tenderness Skin General skin exam: no rashes or lesions noted Neuro General: patient oriented x3 Psych Appearance: grossly normal Mental Status: mental status grossly normal Insight: Good insight present (Psych) Judgement: Good judgement present (Psych) Results Reviewed Results Reviewed: Urinalysis is consistent with an acute urinary tract infection and urine culture is pending. Assessment & Plan Assessment & Plan (1) Dysuria: Comment: Urine culture is pending at this time. Code(s): R30.0 - Dysuria Plan: Keflex t.i.d. x7 days. (2) Lumbar strain: Comment: Given this patient's history coupled with her examination, imaging is deferred at this time. Patient will be treated with anti-inflammatories. Code(s): S39.012A - Strain of muscle, fascia and tendon of lower back, initial encounter Qualifiers: Encounter type: initial encounter Qualified Code(s): S39.012A - Strain of muscle, fascia and tendon of lower back, initial encounter Plan: Naprosyn b.i.d. times 7-10 days. Follow up with PCP as needed. Orders: Orders AMB Urinalysis Automated Today Z13.9 - Encounter for screening, unspecified Urine Culture Today R30.0 - Dysuria Medications: New naproxen (EC-Naprosyn) 500 mg PO BID 20 tabs 0RF cephalexin 500 mg PO Q8H 21 caps 0RF Coding Level of Care Code Est Pt Level 3 (23257) Diagnoses Dysuria R30.0 Strain of lumbar region, initial encounter S39.012A Encounter type: initial encounter Time Spent (min) 25
[2024-09-27 12:20] VITALS: BP 142/90; PULSE 106; TEMP 36.7; O2SAT 96
== END 2024-09-27 13:41 | disposition home or self-care (01) ==
PROVIDERS: PCP Internal Medicine; Visit Provider Physician Assistant
DX: R30.0 Dysuria (principal); S39.012A Strain of muscle, fascia and tendon of lower back, initial encounter; Z13.9 Encounter for screening, unspecified

== ENCOUNTER 2024-09-27 12:13 | Outpatient (REF) | payer MEDICARE, SELFPAY | END 2024-09-27 12:14 | disposition home or self-care (01) | LOC: HO.LNP 12:13 | PROVIDERS: PCP Internal Medicine; Visit Provider Physician Assistant | DX: R30.0 Dysuria (principal); S39.012A Strain of muscle, fascia and tendon of lower back, initial encounter | CPT/HCPCS: 81003; 87086; 87088; 87186; 99212 ==

== ENCOUNTER 2025-02-14 12:55 | Outpatient (REF) | payer MEDICARE, SELFPAY ==
--- NOTE | ~2025-02-14 | MM_ITS ---
EXAMINATION: MM SCREENING DIGITAL BREAST TOMOSYNTHESIS, BILATERAL CLINICAL INFORMATION: Screening. Asymptomatic. COMPARISON: Comparison made to multiple prior, most recent May 13, 2022, and most remote March 05, 2015. TECHNIQUE: Digital breast tomosynthesis is performed in both the craniocaudal and mediolateral oblique views along with computer-aided detection (CAD). Synthesized 2D images are generated from the tomosynthesis. FINDINGS: BREAST COMPOSITION: There are scattered areas of fibroglandular density (ACR BI-RADS breast composition Category b). BILATERAL BREASTS: No significant masses, suspicious calcifications or other abnormalities are seen in either breast. MM/MM tomosynthesis screening BI IMPRESSION: BILATERAL BREASTS: Negative, no mammographic evidence of malignancy. Normal interval follow-up is recommended in 12 months. ASSESSMENT: BI-RADS 1 - Negative RECOMMENDATION: Routine annual mammography screening. FOLLOW-UP: 1 year F/U This examination should not preclude the clinical evaluation of a suspicious palpable abnormality. This patient's information was entered into a reminder system with a target due date for their next mammogram. Electronically signed by: Geovanny Gutiérrez MD 02/24/2025 05:15 PM EDT
--- NOTE | ~2025-02-14 | MM_ITS ---
EXAMINATION: DXA BONE DENSITY AXIAL HISTORY: Z12.31 - Encounter for screening mammogram for malignant neoplasm of breast TECHNIQUE: Retargetly Dual energy absorptiometry (DEXA) of the lumbar spine, total left hip, and femoral neck was performed. COMPARISON: Comparison is made with the prior examination dated 04/16/2021. FINDINGS: The bone mineral density of the lumbar spine is 0.879 g/cm2, corresponding to a T-score of -2.5, and a Z-score of -0.7. This is indicative of osteoporosis. This represents a BMD change of -1.9% compared to the prior exam. This is not statistically significant. The bone mineral density of the left total hip is 0.620 g/cm2, corresponding to a T-score of -3.1, and a Z-score of -1.4. This is indicative of osteoporosis. This represents a BMD change of -5.8% compared to the prior exam. This is statistically significant. The bone mineral density of the left femoral neck is 0.643 g/cm2, corresponding to a T-score of -2.8, and a Z-score of -1.0. This is indicative of osteoporosis. This represents a BMD change of -16.1% compared to the prior exam. FRACTURE RISK: The FRAX index suggests a ten year probability of major osteoporotic fracture of 17.9%, and of hip fracture 5.9%. MM/XR DEXA axial skeleton IMPRESSION: Based on bone mineral density, and according to World Health Organization (WHO) criteria, the diagnosis is consistent with osteoporosis. Statistically, 68% of repeat scans fall within 1 SD (+/- 0.010 g/cm2 for AP spine L1-L4) and 1 SD (+/- 0.012 g/cm2 for femur total) FRAX is a trademark of the [employer] [place] [facility] [employer], a World Health Organization (WHO) Collaborating Center. Electronically signed by: Zuhair Kingsley MD 02/14/2025 02:12 PM EDT
== END 2025-02-14 12:56 | disposition home or self-care (01) ==
LOC: HO.MAMMO 12:55
PROVIDERS: PCP Internal Medicine; Visit Provider Internal Medicine
DX: Z12.31 Encounter for screening mammogram for malignant neoplasm of breast (principal); M81.0 Age-related osteoporosis without current pathological fracture; Z78.0 Asymptomatic menopausal state
CPT/HCPCS: 77063; 77067; 77080

== ENCOUNTER → 2025-02-14 13:30 | Outpatient (BNV) | payer MEDICARE, SELFPAY | PROVIDERS: PCP Internal Medicine; Visit Provider Radiology Diagnostic Radiology | DX: E28.39 Other primary ovarian failure (principal) | CPT/HCPCS: 77080 ==

== ENCOUNTER 2025-04-06 14:27 | Outpatient (AMB) | payer MEDICARE, SELFPAY ==
[2025-04-06 14:50] VITALS: BP 135/70; PULSE 78; RESP 16; TEMP 36.8; O2SAT 98; BMI 30.9
--- NOTE | 2025-04-06 14:50 | A.OFFPC_ITS ---
Vital Signs 04/06/25 14:50 Height 4 ft 8 in Weight 138 lb BMI 30.9 BP 135/70 Blood Pressure Location Rt brachial Position Sitting Respiration 16 Pulse 78 Pulse Source Pulse Oximeter Temp 98.2 F Temp Source Oral Pulse Oximetry (%) 98 Oxygen Delivery Method Room Air Intake Visit Reasons: E-bike Intake Note: Pt is here today wants to discuss ok to ride a E-bike Allergies No Known Allergies (No Known Allergies*) Allergy (Verified 04/13/25 02:15) Medication List - Last Reconciled 04/13/25 by Ruby Luther MD latanoprost 0.005% 1 drp ophthalmic (eye) BEDTIME lisinopril 10 mg PO DAILY khyydwkn-lcrwzlu-ubxl-lutein tabs PO timolol maleate 0.5% 1 drp ophthalmic (eye) BID Tobacco use date assessed: 04/06/25 Fall risk assessment: No Falls in past year Last assessed Fall Risk: 04/06/25 Dental Screening Dental Screen Date: 04/06/25 Did you have a dental visit in the last 12 months?: Yes Did you have a dental problem in the last 6 months where you did not have access to dental care?: No Was dental information given to patient?: Patient has dentist HPI E-bike HPI Details - The patient is a 74-year-old female wi th history of osteoporosis, accompanied today by her [id number], here today requesting evaluation to get a voucher to be able to get an E bike for elderly people, for exercise purposes. - Osteoporosis: Diagnosed with osteoporo sis after a bone density test in January, showing progression from osteopenia in 2020. - The patient has not adhered to alendro tang therapy prescribed two years ago due to an aversion in taking medication. -she walks regularly , and in participat e [facility]. Has not had any falls, no history of fractures. - A 5.8% decrease in bone density was no abraham in the left hip compared to previous measurements. - History of nephrolithiasis: Previously evaluated by a specialist for kidney stones. [facility] Medical History (Updated 04/13/25 @ 02:24 by Ruby Luther MD) History of nephrolithiasis History of adenomatous polyp of colon Essential hypertension Osteoporosis Needs flu shot Vitamin D deficiency Dyslipidemia Endometrial thickening on ultrasound Hemorrhoids Diverticulosis Glaucoma Surgical History H/O colonoscopy History of lithotripsy Family History Father No problems noted. Mother CVD (cardiovascular disease) Brother No problems noted. Brother No problems noted. Social History Housing: House Are you a primary md do resident urgent care to a significant other at home: No Do you presently have visiting nurse or other home services: No Alcohol intake: never Patient Tobacco Use Status: Never used Tobacco e-Cigarette/Vaping Use: Never Used Second Hand Smoke Exposure: No Current occupational status: retired Cognitive needs: No Hearing needs: Yes Vision needs: Yes Questionnaire PHQ-9 Over the last 2 weeks, how often have you been bothered by any of the following problems? Depression Screening Interpretation: Negative Depression Screening Done: Yes Source: Developed by Drs. Zuhair Desouza, Brigitte Katz, Rowdy Fisher and colleagues, with an educational fidel from [employer]. Thrive Questionnaire Date Thrive assessed: 04/04/25 I am a: Patient What is your living situation today?: I have a steady place to live Within the past 12 months, did you worry whether your food would run out before you got money to buy more?: Never true Do you have trouble getting transportation to medical appointments?: No Do you have trouble paying your heating and electricity bill?: No Do you have trouble taking care of your child, family member or friend?: No Do you have trouble with day-to-day activities such as bathing, preparing meals, shopping, managing finances, etc.?: No Are you currently unemployed and looking for a job?: No Are you interested in more education?: No Please select the resources that you would like help with: None THRIVE Score: 0 AUDIT C Alcohol Use Questionnaire (AUDIT-C) 1. How often do you have a drink containing alcohol?: Never Total Score: 0 OG-7 AMB Questionnaire OG-7 Date OG - 7 assessed: 06/14/24 Feeling nervous, anxious, or on edge: 0 = Not at all Not being able to stop or control worryin = Not at all Worrying too much about different things: 0 = Not at all Trouble relaxin = Not at all Being so restless that it is hard to sit still: 0 = Not at all Becoming easily annoyed or irritable: 0 = Not at all Feeling afraid as if something awful might happen: 0 = Not at all Total OG-7 score (0-4 normal; 5-9 mild; 10-14 moderate; 15-21 severe): 0 Source: Developed by Drs. Zuhair Desouza, Brigitte Katz, Rowdy Fisher and colleagues, with an educational fidel from [employer]. Review of Systems Const All systems reviewed & are unremarkable except as noted in HPI and below Eyes Reports no additional complaints ENT Reports no additional complaints and Denies neck pain Card Reports no additional complaints Resp Reports no additional complaints GI Reports no additional complaints Reports no additional complaints Musc Reports back pain, Denies myalgias, Denies arthralgias and Denies neck pain Skin/Breast Reports system reviewed and no additional complaints, except as documented Neuro Reports no additional complaints Psych Reports no additional complaints Endo Reports no additional complaints Roger/Lymph Reports no additional complaints Aller/Immun Reports no additional complaints Physical exam (Primary Care) Vital Signs: Last Vital Signs Temp 98.2 F 04/06/25 14:50 Pulse 78 04/06/25 14:50 Resp 16 04/06/25 14:50 BP 135/70 04/06/25 14:50 Pulse Ox 98 04/06/25 14:50 Oxygen Delivery Method Room Air 04/06/25 14:50 BMI result Body Mass Index 30.9 BMI Assessment/Plan discussion: High BMI High, discussed plan: lifestyle, weight reduction, dietary and physical activity Tobacco/Smoking Status: Tobacco use Status Tobacco use date assessed 04/06/25 04/06/25 14:55 Patient Tobacco Use Status Never used Tobacco 04/06/25 14:55 e-Cigarette/Vaping Use Never Used 04/06/25 14:55 Depression Screening Interpretation: Negative Thrive Assessment: Date of Thrive Assessment Date Thrive assessed 04/04/25 04/06/25 14:55 Const General: comfortable, no acute distress and alert Nutritional Appearance: obese Orientation/consciousness: patient oriented x3 Limitations: no limitations HENMT Head: Yes normocephalic Ears: external ears normal, TM's normal bilaterally, EAC's normal and hearing grossly impaired (Wears hearing aids bilateral) General nose exam: Normal external nose present Face and sinus: Yes face symmetric Mouth: Normal oral and palatal mucosa present and moist mucous membranes Eyes General: appearance normal, both eyes and all related structures Neck Neck: Yes full ROM, Yes no lymphadenopathy and Yes supple Thyroid: Thyroid normal Resp Effort & Inspection: normal respiratory effort and able to speak in complete sentences Auscultation: clear to auscultation bilaterally Cardio Rate: regular rate Rhythm: regular rhythm Heart sounds: S1 normal heart sound present and S2 normal heart sound present GI Palpation (GI): Soft to palpation, nontender, no guarding and no masses Auscultation: normal bowel sounds Back/Spine/Pelvis Back: No back tenderness Skin General skin exam: no rashes or lesions noted Neuro General: patient oriented x3, gait normal, Normal light touch and pain sensation, no focal motor deficits and CN's II-XI intact bilaterally Extrem General: Yes full ROM, Yes no joint enlargement, Yes no clubbing, cyanosis or edema, Yes no pedal edema, Yes no calf tenderness and Yes normal gait Coding Level of Care Code Est Pt Level 4 (21172) Complex EM visit Add On G2211 Diagnoses Age-related osteoporosis without current pathological fracture M81.0 Osteoporosis type: age-related Presence of current pathological fracture: without current pathological fracture Dyslipidemia E78.5 Vitamin D deficiency E55.9 Essential hypertension I10 Assessment & Plan Assessment & Plan (1) Osteoporosis: Code(s): M81.0 - Age-related osteoporosis without current pathological fracture Category: Medical Qualifiers: Osteoporosis type: age-related Presence of current pathological fracture: without current pathological fracture Qualified Code(s): M81.0 - Age- related osteoporosis without current pathological fracture Plan: Has a aversion to taking medications on a daily basis. Will refer to Endocrine for further treatment options regarding her osteoporosis. Continue with regular exercise, take adequate calcium from dietary sources take [id number]-gsp-bztldyl vitamin D3 at 2000 units daily. Cautioned about fall risk with patient and [id number], when using the E bike. Patient states that she knows how to bike, and does it regularly. Ordered a basic metabolic panel and vitamin-D level (2) Dyslipidemia: Code(s): E78.5 - Hyperlipidemia, unspecified Category: Medical Plan: Fasting lipid panel, liver enzymes ordered (3) Vitamin D deficiency: Code(s): E55.9 - Vitamin D deficiency, unspecified Category: Medical Plan: Will check vitamin-D level (4) Essential hypertension: Code(s): I10 - Essential (primary) hypertension Category: Medical Plan: Fasting basic metabolic panel ordered. Continue with current medication. Reinforced importance of following a low sodium diet, getting regular exercise, and lowering stress levels. Orders: Orders Lipid Panel 06/03/25 E55.9 - Vitamin D deficiency, unspecified, E78.5 - Hyperlipidemia, unspecified, I10 - Essential (primary) hypertension, M81.0 - Age-related osteoporosis without current pathological fracture, Z86.0101 - Personal history of adenomatous and serrated colon polyps, Z87.442 - Personal history of urinary calculi Hemoglobin and Hematocrit 06/03/25 D12.6 - Benign neoplasm of colon, unspecified, E55.9 - Vitamin D deficiency, unspecified, E78.5 - Hyperlipidemia, unspecified, I10 - Essential (primary) hypertension, M81.0 - Age-related osteoporosis without current pathological fracture, Z86.0101 - Personal history of adenomatous and serrated colon polyps, Z87.442 - Personal history of urinary calculi Aspartate Amino Transferase 06/03/25 D12.6 - Benign neoplasm of colon, unspecified, E55.9 - Vitamin D deficiency, unspecified, E78.5 - Hyperlipidemia, unspecified, I10 - Essential (primary) hypertension, M81.0 - Age-related osteoporosis without current pathological fracture, Z86.0101 - Personal history of adenomatous and serrated colon polyps, Z87.442 - Personal history of urinary calculi Alanine Aminotransferase 06/03/25 D12.6 - Benign neoplasm of colon, unspecified, E55.9 - Vitamin D deficiency, unspecified, E78.5 - Hyperlipidemia, unspecified, I10 - Essential (primary) hypertension, M81.0 - Age-related osteoporosis without current pathological fracture, Z86.0101 - Personal history of adenomatous and serrated colon polyps, Z87.442 - Personal history of urinary calculi Basic Metabolic Panel Fasting 06/03/25 D12.6 - Benign neoplasm of colon, unsp ecified, E55.9 - Vitamin D deficiency, unspecified, E78.5 - Hyperlipidemia, unspecified, I10 - Essential (primary) hypertension, M81.0 - Age-related osteoporosis without current pathological fracture, Z86.0101 - Personal history of adenomatous and serrated colon polyps, Z87.442 - Personal history of urinary calculi Vitamin D 25-OH Total 06/03/25 D12.6 - Benign neoplasm of colon, unspecified, E55.9 - Vitamin D deficiency, unspecified, E78.5 - Hyperlipidemia, unspecified, I10 - Essential (primary) hypertension, M81.0 - Age-related osteoporosis without current pathological fracture, Z86.0101 - Personal history of adenomatous and serrated colon polyps, Z87.442 - Personal history of urinary calculi Referrals Endocrinology Referral M81.0 - Age-related osteoporosis without current pathological fracture
== END 2025-04-06 16:11 | disposition home or self-care (01) ==
LOC: HO.HMCC 14:28
PROVIDERS: PCP Internal Medicine; Visit Provider Internal Medicine
DX: M81.0 Age-related osteoporosis without current pathological fracture (principal); E78.5 Hyperlipidemia, unspecified; E55.9 Vitamin D deficiency, unspecified; I10 Essential (primary) hypertension

== ENCOUNTER → 2025-04-06 14:27 | Outpatient (BNVA) | payer MEDICARE, SELFPAY | PROVIDERS: PCP Internal Medicine; Visit Provider Internal Medicine | DX: M81.0 Age-related osteoporosis without current pathological fracture (principal); E78.5 Hyperlipidemia, unspecified; E55.9 Vitamin D deficiency, unspecified; I10 Essential (primary) hypertension; Z87.442 Personal history of urinary calculi | CPT/HCPCS: 99212 ==

== ENCOUNTER 2025-06-15 13:05 | Outpatient (REF) | payer MEDICARE, SELFPAY ==
[2025-06-15 16:27] LABS: Hematocrit 42.4 % (37.0-47.0); Hemoglobin 14.3 g/dl (12.0-16.0)
[2025-06-15 17:01] LABS: Alanine Aminotransferase 18 U/L (0-31); Anion Gap 14 (12-20); Aspartate Amino Transferase 31 U/L (5-31); Blood Urea Nitrogen 12 mg/dL (9-16); Calcium 8.9 mg/dL (8.4-10.2); Carbon Dioxide 25 mmol/L (22-29); Chloride 107 mmol/L (96-108); Cholesterol 259 mg/dL (<200); Estimated Glomerular Filt Rate > 60; HDL Cholesterol 78 mg/dL (>40); Potassium 3.5 mmol/L (3.3-5.1); Sodium 142 mmol/L (135-145); Triglycerides 105 mg/dL (<150)
== END 2025-06-15 13:06 | disposition home or self-care (01) ==
LOC: HO.HMGCLDS 13:05
PROVIDERS: PCP Internal Medicine; Visit Provider Internal Medicine
DX: I10 Essential (primary) hypertension (principal); M81.0 Age-related osteoporosis without current pathological fracture; E78.5 Hyperlipidemia, unspecified; E55.9 Vitamin D deficiency, unspecified; D12.6 Benign neoplasm of colon, unspecified; Z86.0101 Personal history of adenomatous and serrated colon polyps; Z87.442 Personal history of urinary calculi
CPT/HCPCS: 36415; 80048; 80061; 82306; 84450; 84460; 85014; 85018

== ENCOUNTER 2025-06-21 09:49 | Outpatient (AMB) | payer MEDICARE, SELFPAY ==
[2025-06-21 10:01] VITALS: BP 126/82; PULSE 86; RESP 16; TEMP 36.6; O2SAT 98; BMI 31.2
--- NOTE | 2025-06-21 10:01 | MHC.PC.OV ---
Vital Signs 06/21/25 10:01 Height 4 ft 8 in Weight 139 lb BMI 31.2 BP 126/82 Blood Pressure Location Lt brachial Position Sitting Respiration 16 Pulse 86 Pulse Source Pulse Oximeter Temp 97.9 F Temp Source Oral Pulse Oximetry (%) 98 Oxygen Delivery Method Room Air Intake Visit Reasons: Annual PE - see comments Intake Note: Pt is here today for her PE: Last mammogram 02/14/25, bone density scan 02/14/25, colonoscopy 08/25/22 Certified Residential Medication Aide Required: No Allergies No Known Allergies (No Known Allergies*) Allergy (Verified 06/21/25 10:45) Medication List - Last Reconciled 06/21/25 by Ruby Luther MD latanoprost 0.005% 1 drp ophthalmic (eye) BEDTIME lisinopril 10 mg PO DAILY onuircty-vwxwqtj-dwnu-lutein tabs PO timolol maleate 0.5% 1 drp ophthalmic (eye) BID Tobacco use date assessed: 06/21/25 Fall risk assessment: No Falls in past year Last assessed Fall Risk: 06/21/25 Dental Screening Dental Screen Date: 06/21/25 Did you have a dental visit in the last 12 months?: Yes Did you have a dental problem in the last 6 months where you did not have access to dental care?: No Was dental information given to patient?: Patient has dentist HPI HPI Comments History of Present Illness Details The patient is a 75-year-old female presenting for her physical exam. She has a history of hypercholesterolemia and is not currently taking medication for it. Recent lab results show her total cholesterol has increased from V248 to 259 mg/dL and her LDL cholesterol from 158 to 160 mg/dL. Her diet includes receiving meals from [employer], and she snacks on rice pudding, potato chips, and sweet, full-fat yogurts. The patient has a new diagnosis of osteoporosis confirmed by a bone density scan in January, which showed osteoporotic changes in her lumbar spine, left hip, and left thigh, with the left hip being worse. She was previously on a once-a-week pill for osteoporosis but discontinued it. She has an appointment with an osteoporosis specialist, Dr. Quarles, scheduled for July. The patient denies any history of fractures. For health maintenance, her mammogram in January was normal. She had a colonoscopy in 2023 where three polyps were removed, two of which were precancerous, with a recommendation for a repeat procedure in three years. The patient has a history of glaucoma, for which she uses eye drops, and needs to reschedule a follow-up appointment. Her tetanus vaccination is up to date, butdeclined flu shot, COVID booster, or shingles vaccine. Regarding her lifestyle, the patient walks her dog but does not engage in regular cardio exercise. She denies smoking. She wears a hearing aid and sees a dentist for regular cleanings. [facility] Medical History History of nephrolithiasis History of adenomatous polyp of colon Essential hypertension Osteoporosis Needs flu shot Vitamin D deficiency Dyslipidemia Endometrial thickening on ultrasound Hemorrhoids Diverticulosis Glaucoma Surgical History H/O colonoscopy History of lithotripsy Family History Father No problems noted. Mother CVD (cardiovascular disease) Brother No problems noted. Brother No problems noted. Social History Housing: House Are you a primary manager care management to a significant other at home: No Do you presently have visiting nurse or other home services: No Alcohol intake: never Patient Tobacco Use Status: Never used Tobacco e-Cigarette/Vaping Use: Never Used Second Hand Smoke Exposure: No Current occupational status: retired Cognitive needs: No Hearing needs: Yes Vision needs: Yes Questionnaire PHQ-9 Over the last 2 weeks, how often have you been bothered by any of the following problems? 1. Little interest or pleasure in doing things: not at all 2. Feeling down, depressed, or hopeless: not at all 3. Trouble falling or staying asleep, or sleeping too much: not at all 4. Feeling tired or having little energy: not at all 5. Poor appetite or overeating: not at all 6. Feeling bad about yourself - or that you are a failure or have let yourself or your family down: not at all 7. Trouble concentrating on things, such as reading the newspaper or watching television: not at all 8. Moving or speaking so slowly that other people could have noticed. Or the opposite - being so fidgety or restless that you have been moving around a lot more than usual: not at all 9. Thoughts that you would be better off or of hurting yourself in some way: not at all Total score: 0 Depression Screening Interpretation: Negative Depression Screening Done: Yes Source: Developed by Drs. Zuhair Desouza, Brigitte Katz, Rowdy Fisher and colleagues, with an educational fidel from [employer]. Thrive Questionnaire Date Thrive assessed: 04/04/25 I am a: Patient What is your living situation today?: I have a steady place to live Within the past 12 months, did the food you bought not last and you didn't have the money to get more?: Never true Within the past 12 months, did you worry whether your food would run out before you got money to buy more?: Never true Do you have trouble paying for medicines?: No Do you have trouble getting transportation to medical appointments?: No Do you have trouble paying your heating and electricity bill?: No Do you have trouble taking care of your child, family member or friend?: No Do you have trouble with day-to-day activities such as bathing, preparing meals, shopping, managing finances, etc.?: No Are you currently unemployed and looking for a job?: No Are you interested in more education?: No Please select the resources that you would like help with: None THRIVE Score: 0 AUDIT C Alcohol Use Questionnaire (AUDIT-C) 1. How often do you have a drink containing alcohol?: Never 3. How often do you have six or more drinks on one occasion?: Never Total Score: 0 OG-7 AMB Questionnaire OG-7 Date OG - 7 assessed: 04/06/25 Feeling nervous, anxious, or on edge: 0 = Not at all Not being able to stop or control worryin = Not at all Worrying too much about different things: 0 = Not at all Trouble relaxin = Not at all Being so restless that it is hard to sit still: 0 = Not at all Becoming easily annoyed or irritable: 0 = Not at all Feeling afraid as if something awful might happen: 0 = Not at all Total OG-7 score (0-4 normal; 5-9 mild; 10-14 moderate; 15-21 severe): 0 Source: Developed by Drs. Zuhair Desouza, Brigitte Katz, Rowdy Fisher and colleagues, with an educational fidel from [employer]. Review of Systems Const All systems reviewed & are unremarkable except as noted in HPI and below Eyes Reports no additional complaints ENT Reports no additional complaints and Denies neck pain Card Reports no additional complaints Resp Reports no additional complaints GI Reports no additional complaints Reports no additional complaints Musc Reports back pain, Denies myalgias, Denies arthralgias and Denies neck pain Skin/Breast Reports system reviewed and no additional complaints, except as documented Neuro Reports no additional complaints Psych Reports no additional complaints Endo Reports no additional complaints Roger/Lymph Reports no additional complaints Aller/Immun Reports no additional complaints Physical exam (Primary Care) Vital Signs: Last Vital Signs Temp 97.9 F 06/21/25 10:01 Pulse 86 06/21/25 10:01 Resp 16 06/21/25 10:01 BP 126/82 06/21/25 10:01 Pulse Ox 98 06/21/25 10:01 Oxygen Delivery Method Room Air 06/21/25 10:01 BMI result Body Mass Index 31.2 BMI Assessment/Plan discussion: High BMI High, discussed plan: lifestyle, weight reduction, dietary and physical activity Tobacco/Smoking Status: Tobacco use Status Tobacco use date assessed 06/21/25 06/21/25 10:05 Patient Tobacco Use Status Never used Tobacco 06/21/25 10:05 e-Cigarette/Vaping Use Never Used 06/21/25 10:05 PHQ-9: PHQ-9 Score PHQ-9: Total score 0 07/02/25 18:44 Depression Screening Interpretation: Negative Thrive Assessment: Date of Thrive Assessment Date Thrive assessed 04/04/25 06/21/25 10:05 Const General: comfortable, no acute distress and alert Nutritional Appearance: obese Orientation/consciousness: patient oriented x3 HENMT Head: Yes normocephalic Ears: external ears normal, TM's normal bilaterally, EAC's normal and hearing grossly impaired (Wears hearing aids bilateral) General nose exam: Normal external nose present Face and sinus: Yes face symmetric Mouth: Normal oral and palatal mucosa present and moist mucous membranes Eyes General: appearance normal, both eyes and all related structures Neck Neck: Yes full ROM, Yes no lymphadenopathy and Yes supple Thyroid: Thyroid normal Chest Breast/axilla inspection: normal inspection of the breasts Breast/axilla palpation: normal palpation of the breasts Resp Effort & Inspection: normal respiratory effort and able to speak in complete sentences Auscultation: clear to auscultation bilaterally Cardio Rate: regular rate Rhythm: regular rhythm Heart sounds: S1 normal heart sound present and S2 normal heart sound present GI Palpation (GI): Soft to palpation, nontender, no guarding and no masses Auscultation: normal bowel sounds Back/Spine/Pelvis Back: No back tenderness Skin General skin exam: no rashes or lesions noted Neuro General: patient oriented x3, gait normal, Normal light touch and pain sensation, no focal motor deficits and CN's II-XI intact bilaterally Extrem General: Yes full ROM, Yes no joint enlargement, Yes no clubbing, cyanosis or edema, Yes no pedal edema, Yes no calf tenderness and Yes normal gait Psych Appearance: grossly normal Mental Status: mental status grossly normal Speech and movement: Normal speech and movement present Affect: normal affect Results Reviewed Results Reviewed: Name: Neli Sheridan Age/Sex: 74/F : 1950 Unit#: [id number] Attend Dr: Ruby Luther MD Re06/15/25 Status: DEP REF Location: [facility] Disch: SPEC : [id number] MAXIME: 06/15/25 STATUS: COMP REQ : [id number] RECD: 06/15/[address]: Ruby Luther MD COMP: 06/15/25 ENTERED: 06/15/[address]: ORDERED: Met Prof Fast, AST, ALT, Lipid Panel, Vitamin D 25-OH Test Result Flag Reference Sodium 142 135-145 mmol/L Potassium 3.5 3.3-5.1 mmol/L CL 107 96-108 mmol/L CO2 25 22-29 mmol/L Gap 14 12-20 BUN 12 9-16 mg/dL Creat 0.56 0.5-1.4 mg/dL eGFR > 60 Chronic Kidney Disease: Estimated GFR < 60 mL/min/1.73m2 Severe Kidney Disease: Estimated GFR < 15 mL/min/1.73m2 FBS 85 60-99 mg/dL CA 8.9 8.4-10.2 mg/dL AST (GOT) 31 5-31 U/L ALT (GPT) 18 0-31 U/L Triglyceride 105 <150 mg/dL Desirable Triglyceride: less than 150 mg/dL Borderline High Triglyceride 150-199 mg/dL High Triglyceride: 200-499 mg/dL Very High Triglyceride: greater than or equal to 5OO mg/dL Cholesterol 259 H <200 mg/dL Desirable Cholesterol: less than 200 mg/dL Borderline High Cholesterol: 200-239 mg/dL High Cholesterol: greater than 239 mg/dL LDL Calculated 160 H <100 mg/dL Desirable LDL: less than 100 mg/dL Near Optimal/Above Optimal LDL: 110-129 mg/dL Borderline High LDL: 130-159 mg/dL High LDL: 160-189 mg/dL Very High LDL: greater than or equal to 190 mg/dL HDL 78 >40 mg/dL Desirable HDL: greater than 40 mg/dL Note: This HDL assay may give artificially low results in patients with liver disease. Vitamin D 25-OH 34.6 >30 ng/mL Health Based Reference Values* < 20 ng/mL Deficient 20-30 ng/mL Insufficient > 30 ng/mL Sufficient Laboratory Tests 06/15/25 13:11 Hgb 14.3 Hct 42.4 Coding Level of Care Code Est Pt Prev Care >65y(32734) Diagnoses Annual visit for general adult medical examination with abnormal findings Z00. Dyslipidemia E78.5 Age-related osteoporosis without current pathological fracture M81.0 Osteoporosis type: age-related Presence of current pathological fracture: without current pathological fracture Essential hypertension I10 History of adenomatous polyp of colon Z86.0101 Assessment & Plan Assessment & Plan (1) Annual visit for general adult medical examination with abnormal findings: Code(s): Z00.01 - Encounter for general adult medical examination with abnormal findings Plan: Fasting labs ordered today. Prevnar 20 given today. Advised to get flu, Shingrix vaccine, and COVID booster. Reinforced importance of adhering to healthy eating habits and regular exercise. Reminded to get dental cleanings every six-months and eye exam yearly, for follow-up on her glaucoma. Up-to-date with her screening colonoscopy, mammogram and bone density scan. (2) Dyslipidemia: Code(s): E78.5 - Hyperlipidemia, unspecified Category: Medical Plan: The patient's cholesterol is elevated, with total cholesterol at 259 mg/dL and LDL at 160 mg/dL, and has slightly increased since last measured. She is not on medication and has a diet high in cholesterol-rich snacks. Plan includes a referral to a dietitian for counseling; the patient prefers a morning appointment. She was instructed to maintain a food diary to track her meals and snacks. Will repeat fasting cholesterol labs in October or November of next year to assess for improvement. (3) Osteoporosis: Code(s): M81.0 - Age-related osteoporosis without current pathological fracture Category: Medical Qualifiers: Osteoporosis type: age-related Presence of current pathological fracture: without current pathological fracture Qualified Code(s): M81.0 - Age-related osteoporosis without current pathological fracture Plan: recent bone density scan revealed osteoporosis in her lumbar spine, left hip, and thigh. She has an appointment scheduled with Dr. Quarles on July 05 to discuss treatment options such as Prolia, as she previously did not adhere to a once-a-week oral medication. The patient was counseled on the importance of fall prevention, especially during winter. (4) Essential hypertension: Code(s): I10 - Essential (primary) hypertension Category: Medical Plan: Blood pressure at goal of less than 130/80. Continue lisinopril 10 mg daily. Reinforced importance of following a low sodium diet, getting regular exercise, and lowering stress levels. (5) History of adenomatous polyp of colon: Code(s): Z86.0101 - Personal history of adenomatous and serrated colon polyps Category: Medical Plan: Repeat screening again in 2025 Orders: Orders Aspartate Amino Transferase 06/21/25 I10 - Essential (primary) hypertension, E78.5 - Hyperlipidemia, unspecified Pneumococcal 20 Immunization 06/21/25 Z23 - Encounter for immunization Lipid Panel 06/21/25 I10 - Essential (primary) hypertension, E78.5 - Hyperlipidemia, unspecified Alanine Aminotransferase 06/21/25 I10 - Essential (primary) hypertension, E78.5 - Hyperlipidemia, unspecified Basic Metabolic Panel Fasting 06/21/25 I10 - Essential (primary) hypertension, E78.5 - Hyperlipidemia, unspecified Medications: New pneumoc 20-tay conj-dip cr(PF) 0.5 mL IM ONCE 0.5 mL 0RF Z23 - Encounter for immunization
== END 2025-06-21 10:51 | disposition home or self-care (01) ==
LOC: HO.HMCC 09:50
PROVIDERS: PCP Internal Medicine; Visit Provider Internal Medicine
DX: Z00.01 Encounter for general adult medical examination with abnormal findings (principal); E78.5 Hyperlipidemia, unspecified; M81.0 Age-related osteoporosis without current pathological fracture; I10 Essential (primary) hypertension; Z86.0101 Personal history of adenomatous and serrated colon polyps

== ENCOUNTER → 2025-06-21 09:49 | Outpatient (BNVA) | payer MEDICARE, SELFPAY | PROVIDERS: PCP Internal Medicine; Visit Provider Internal Medicine | DX: Z00.01 Encounter for general adult medical examination with abnormal findings (principal); E78.5 Hyperlipidemia, unspecified; M81.0 Age-related osteoporosis without current pathological fracture; I10 Essential (primary) hypertension; Z01.01 Encounter for examination of eyes and vision with abnormal findings; Z86.0101 Personal history of adenomatous and serrated colon polyps | CPT/HCPCS: 99397 ==